=== PATIENT | female | born 1975 | race Caucasian/White ===

== ENCOUNTER 2022-10-20 08:44 | Outpatient (AMB) | payer OTHER, SELFPAY ==
--- NOTE | 2022-10-20 08:47 | A.OFFPC_ITS ---
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 Transferring care from Dr Sylvie Katz ([facility]), . Medical records have been requested and have not received. Side Sawyer Required: No Deck Officer: Not Required per policy Accompanied by: Self / Same As Patient Allergies cyclobenzaprine [From Flexeril] Allergy (Intermediate, Verified 10/20/22 09:25) Hives diphenhydramine [From Benadryl] Allergy (Intermediate, Verified 10/20/22 09:25) Palpitations Medication List - Last Reconciled 10/20/22 by MIRACLE Guido atorvastatin 40 mg PO DAILY bupropion HCl 200 mg PO DAILY clopidogrel 75 mg PO DAILY diltiazem HCl 240 mg PO DAILY escitalopram oxalate 5 mg PO DAILY fluticasone furoate-vilanterol 200-25 mcg/dose (Breo Ellipta) 1 inh inhalation DAILY folic acid 1 mg PO DAILY gabapentin 300 mg PO BEDTIME gabapentin 100 mg PO BEDTIME infliximab (Remicade) every six weeks levocetirizine (Xyzal) 5 mg PO DAILY levothyroxine 50 mcg PO DAILY methotrexate sodium 10 mg PO QWEEK propranolol ER 60 mg PO DAILY rivaroxaban (Xarelto) 20 mg PO DAILY Tobacco use date assessed: 10/20/22 Dental Screening Dental Screen Date: 10/20/22 Did you have a dental visit in the last 12 months?: Yes Did you have a dental problem in the last 6 months where you did not have access to dental care?: No Was dental information given to patient?: Patient has dentist HPI HPI Comments History of Present Illness Details A 47-year-old female new patient presents today to establish care. Past medical history significant for hypothyroidism, asthma, anxiety, depression, obstructive sleep apnea uses a CPAP with good effect, osteoarthritis, Sarcodosis, RLS and spontaneous dissection of coronary artery, VA's x2. Paroxysmal AFib. Patient currently following with therapist Christie Calles and psychiatrist: Luciano Moreno. Spontaneous dissection of coronary artery: Patient currently following with the [facility] Rickie Waller Sarcodosis: Patient currently on Remicade and methotrexate. Previous pcp: Dr Sylvie Katz ([facility]), [facility] Medical History (Updated 10/20/22 @ 13:09 by MIRACLE Guido) Myocardial infarction History of pacemaker Surgical History (Updated 10/20/22 @ 09:11 by Wilbert Mello [facility]) History of prior ablation treatment Family History (Updated 10/20/22 @ 09:30 by MIRACLE Guido) Mother No problems noted. Father COPD (chronic obstructive pulmonary disease) Other Mental health disorder Substance use disorder Social History Housing: Condominium Alcohol intake: never Patient Tobacco Use Status: Never used Tobacco e-Cigarette/Vaping Use: Never Used Second Hand Smoke Exposure: No service: No Current occupational status: unemployed and disabled Current occupational exposures/hazards: No Cognitive needs: No Hearing needs: No Vision needs: Yes (glasses) Questionnaire PHQ-9 Over the last 2 weeks, how often have you been bothered by any of the following problems? 1. Little interest or pleasure in doing things: several days 2. Feeling down, depressed, or hopeless: several days 3. Trouble falling or staying asleep, or sleeping too much: more than half the days 4. Feeling tired or having little energy: more than half the days 5. Poor appetite or overeating: more than half the days 6. Feeling bad about yourself - or that you are a failure or have let yourself or your family down: several days 7. Trouble concentrating on things, such as reading the newspaper or watching television: several days 8. Moving or speaking so slowly that other people could have noticed. Or the opposite - being so fidgety or restless that you have been moving around a lot more than usual: not at all 9. Thoughts that you would be better off or of hurting yourself in some way: not at all Total score: 10 Depression Screening Interpretation: Positive [id number] - PHQ-9 Billing: Yes Source: Developed by Drs. Mat Mcwilliams, Livier Boykin, Yuri Anguiano and colleagues, with an educational estella from [employer]. Thrive Questionnaire Date Thrive assessed: 10/20/22 I am a: Patient What is your living situation today?: I have a steady place to live Within the past 12 months, did the food you bought not last and you didn't have the money to get more?: Never true Within the past 12 months, did you worry whether your food would run out before you got money to buy more?: Never true Do you have trouble paying for medicines?: No Do you have trouble getting transportation to medical appointments?: No Do you have trouble paying your heating and electricity bill?: No Do you have trouble taking care of your child, family member or friend?: No Do you have trouble with day-to-day activities such as bathing, preparing meals, shopping, managing finances, etc.?: No Are you currently unemployed and looking for a job?: No Are you interested in more education?: No Currently or been in a relationship where the following occur: no concerns reported AUDIT C Alcohol Use Questionnaire (AUDIT-C) 1. How often do you have a drink containing alcohol?: Never Total Score: 0 BRIAN-7 AMB Questionnaire BRIAN-7 Date BRIAN - 7 assessed: 10/20/22 Feeling nervous, anxious, or on edge: 1 = Several days Not being able to stop or control worryin = Several days Worrying too much about different things: 1 = Several days Trouble relaxin = Several days Being so restless that it is hard to sit still: 1 = Several days Becoming easily annoyed or irritable: 0 = Not at all Feeling afraid as if something awful might happen: 0 = Not at all Total BRIAN-7 score (0-4 normal; 5-9 mild; 10-14 moderate; 15-21 severe): 5 Source: Developed by Drs. Mat Mcwilliams, Yuri Spencer and colleagues, with an educational estella from [employer]. Review of Systems Const Denies chills, Denies fatigue, Denies fever(s) and Denies poor appetite Eyes Denies no additional complaints ENT Reports Normal hearing present Card Denies chest pain, Denies syncope, Denies rapid heart rate and Denies dyspnea Resp Denies cough and Denies dyspnea GI Denies change in stool character, Denies constipation, Denies diarrhea, Denies nausea and Denies vomiting Denies urinary frequency, Denies dysuria and Denies urinary urgency Neuro Reports Normal hearing present, Denies confusion and Denies syncope Psych Denies confusion Endo Denies fatigue Physical exam (Primary Care) Vital Signs: Last Vital Signs Pulse 71 10/20/22 08:53 BP 120/70 10/20/22 08:53 Pulse Ox 96 10/20/22 08:53 Oxygen Delivery Method Room Air 10/20/22 08:53 BMI result Body Mass Index 51.8 Tobacco/Smoking Status: Tobacco use Status Tobacco use date assessed 10/20/22 10/20/22 08:55 Patient Tobacco Use Status Never used Tobacco 10/20/22 08:55 e-Cigarette/Vaping Use Never Used 10/20/22 08:55 PHQ-9: PHQ-9 Score PHQ-9: Total score 10 10/20/22 09:37 Depression Screening Interpretation: Positive Thrive Assessment: Date of Thrive Assessment Date Thrive assessed 10/20/22 10/20/22 08:55 Currently or been in a relationship where the following occur: no concerns reported Const General: No confusion Orientation/consciousness: No confusion HENMT Head: Yes normocephalic and Yes atraumatic Eyes Conjunctivae: conjunctivae normal Chest Chest palpation & inspection: normal inspection of the chest Resp Effort & Inspection: normal respiratory effort Auscultation: clear to auscultation bilaterally, no crackles, no rhonchi and no wheezes Cardio Rate: regular rate Rhythm: regular rhythm Heart sounds: S1 normal heart sound present and S2 normal heart sound present GI Inspection: Yes normal to inspection Neuro General: No confusion Cranial nerves: Yes Normal hearing present Extrem General: No edema Assessment and Plan Assessment & Plan (1) Hypothyroidism: Code(s): E03.9 - Hypothyroidism, unspecified Plan: Continue on levothyroxine. (2) Depression: Code(s): F32.A - Depression, unspecified Qualifiers: Depression Type: major depressive disorder Plan: Continue on bupropion 200 mg daily. Continue to follow-up with therapist psychiatrist. (3) Impaired glucose tolerance: Code(s): R73.02 - Impaired glucose tolerance (oral) Plan: Fasting glucose ordered and hemoglobin A1c. (4) Vitamin D deficiency: Code(s): E55.9 - Vitamin D deficiency, unspecified Plan: Vitamin-D level ordered. (5) Environmental allergies: Code(s): Z91.09 - Other allergy status, other than to drugs and biological substances Plan: Patient requesting prescription for size, Rx sent. 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 (6) Restless leg syndrome: Code(s): G25.81 - Restless legs syndrome Plan: Continue on gabapentin (7) MAXIMUS (obstructive sleep apnea): Comment: CPAP Code(s): G47.33 - Obstructive sleep apnea (adult) (pediatric) Plan: Continue CPAP for greater than 4 hours a night with good effect. (8) Anxiety: Code(s): F41.9 - Anxiety disorder, unspecified Plan: Continue on escitalopram 5 mg daily. Continue to follow with therapist and psychiatrist. (9) Spontaneous dissection of coronary artery: Code(s): I25.42 - Coronary artery dissection Plan: Continue to follow-up with network analyst continue on atorvastatin 40 mg daily and Xarelto and clopigogrel (10) Sarcoidosis: Code(s): D86.9 - Sarcoidosis, unspecified Plan: Continue on methotrexate and Remicade. (11) Paroxysmal A-fib: Code(s): I48.0 - Paroxysmal atrial fibrillation Plan: Continue on current anticoagulation therapy continue on diltiazem 240 mg daily propranolol 60 mg daily. Plan Follow-up in 3 months. Orders: Orders Comprehensive Umpire. Panel Fast Today Z13.0 - Encounter for screening for diseases of the blood and blood-forming organs and certain disorders involving the immune mechanism Lipid Panel Today Z13.220 - Encounter for screening for lipoid disorders TSH reflex Free T4 Today Z13.29 - Encounter for screening for other suspected endocrine disorder Complete Blood Count no Diff Today Z13.0 - Encounter for screening for diseases of the blood and blood-forming organs and certain disorders involving the immune mechanism Hemoglobin A1c Today R73.02 - Impaired glucose tolerance (oral) Vitamin D 25-OH Total Today E55.9 - Vitamin D deficiency, unspecified Medications: New levothyroxine 50 mcg PO DAILY 90 tabs 1RF E03.9 - Hypothyroidism, unspecified levocetirizine (Xyzal) 5 mg PO DAILY 90 tabs 1RF Z91.09 - Other allergy status, other than to drugs and biological substances Coding Level of Care Code New Pt Level 4 (38179) Diagnoses Hypothyroidism E03.9 Depression F32.A Depression Type: major depressive disorder Impaired glucose tolerance R73.02 Vitamin D deficiency E55.9 Environmental allergies Z91.09 Restless leg syndrome G25.81 MAXIMUS (obstructive sleep apnea) G47.33 Anxiety F41.9 Spontaneous dissection of coronary artery I25.42 Sarcoidosis D86.9 Paroxysmal A-fib I48.0
[2022-10-20 08:53] VITALS: BP 120/70; PULSE 71; O2SAT 96; BMI 51.8
== END 2022-10-20 09:55 | disposition home or self-care (01) ==
PROVIDERS: PCP Nurse Practitioner Family; Visit Provider Nurse Practitioner Family
DX: E03.9 Hypothyroidism, unspecified (principal); E55.9 Vitamin D deficiency, unspecified; Z91.09 Other allergy status, other than to drugs and biological substances; F41.9 Anxiety disorder, unspecified; I48.0 Paroxysmal atrial fibrillation; F32.A Depression, unspecified; R73.02 Impaired glucose tolerance (oral); G25.81 Restless legs syndrome; G47.33 Obstructive sleep apnea (adult) (pediatric); I25.42 Coronary artery dissection; D86.9 Sarcoidosis, unspecified
CPT/HCPCS: 99204

== ENCOUNTER 2022-10-20 09:49 | Outpatient (REF) | payer OTHER, SELFPAY ==
[2022-10-20 10:30] LABS: Hematocrit 35.4 % (37.0-47.0); Hemoglobin 11.1 g/dl (12.0-16.0); Mean Corpuscular HGB Conc 31.4 g/dl (31.0-35.0); Mean Corpuscular Hemoglobin 27.6 pg (27.0-33.0); Mean Corpuscular Volume 88.1 fL (80.0-98.0); Mean Platelet Volume 10.5 fL (9.4-12.3); Platelet Count 285 X10*3/uL (160-400); Red Blood Count 4.02 X10*6/uL (4.20-5.50); Red Cell Distribution Width 16.5 % (11.0-16.0); White Blood Count 6.9 X10*3/uL (4.8-10.8)
[2022-10-20 10:38] LABS: Estimated Average Glucose 114 mg/dL; Hemoglobin A1C 112.2974 umol/L; Hemoglobin A1c % 5.6 % (<6.0)
[2022-10-20 11:17] LABS: Alanine Aminotransferase 32 U/L (0-31); Albumin Level 3.7 g/dL (3.5-5.0); Alkaline Phosphatase 89 U/L (39-117); Anion Gap 10 (12-20); Aspartate Amino Transferase 30 U/L (5-31); Bilirubin Total 0.4 mg/dL (0.0-1.0); Blood Urea Nitrogen 17 mg/dL (9-16); Calcium 9.1 mg/dL (8.4-10.2); Carbon Dioxide 28 mmol/L (22-29); Chloride 106 mmol/L (96-108); Cholesterol 138 mg/dL (<200); Estimated Glomerular Filt Rate 60; Glucose Fasting 106 mg/dL (60-99); HDL Cholesterol 52 mg/dL (>40); LDL Cholesterol Calculated 64 mg/dL (<100); Potassium 4.4 mmol/L (3.3-5.1); Sodium 140 mmol/L (135-145); Total Protein 6.7 g/dL (6.5-8.0); Triglycerides 110 mg/dL (<150)
[2022-10-20 11:24] LABS: TSH reflex Free T4 1.74 uIU/mL (0.32-4.0)
== END 2022-10-20 09:50 | disposition home or self-care (01) ==
LOC: HO.LAB 09:49
PROVIDERS: PCP Nurse Practitioner Family; Visit Provider Nurse Practitioner Family
DX: E55.9 Vitamin D deficiency, unspecified (principal); R73.02 Impaired glucose tolerance (oral); Z13.0 Encounter for screening for diseases of the blood and blood-forming organs and certain disorders involving the immune mechanism; Z13.220 Encounter for screening for lipoid disorders; Z13.29 Encounter for screening for other suspected endocrine disorder
CPT/HCPCS: 36415; 80053; 80061; 82306; 83036; 84443; 85027

== ENCOUNTER 2022-10-31 14:30 | Outpatient (REF) | payer OTHER, SELFPAY | END 2022-10-31 14:31 | disposition home or self-care (01) | LOC: HO.MAMMO 14:30 | PROVIDERS: Visit Provider Nurse Practitioner Family | DX: Z12.31 Encounter for screening mammogram for malignant neoplasm of breast (principal) | CPT/HCPCS: 77063; 77067 ==

== ENCOUNTER → 2022-10-31 14:30 | Outpatient (BNV) | payer OTHER, SELFPAY | PROVIDERS: Visit Provider Radiology Diagnostic Radiology | DX: Z12.31 Encounter for screening mammogram for malignant neoplasm of breast (principal) | CPT/HCPCS: 77063; 77067 ==

== ENCOUNTER 2022-12-18 13:03 | Outpatient (REF) | payer OTHER, SELFPAY ==
[2022-12-18 14:19] LABS: Appearance Urine Clear; Color Urine Yellow; Glucose Urine UA Negative (Negative); Leukocyte Esterase Urine Large (3+) (Negative); Nitrite Urine Negative (Negative); PH 6.5 (5.0-9.0); Specific Gravity - Urine <= 1.005 (1.005-1.025); UMIC TRIGGER UACC YES; Urine Blood Moderate (2+) (Negative); Urine Ketones Negative (Negative); Urine Protein Trace mg/dL (Neg-Trace)
[2022-12-18 14:29] LABS: Bacteria Urine 1+ (None Seen); Hyaline Casts Urine 0-2 /LPF (0-2); UACC Culture Trigger YES; WBC Urine >50 /HPF (0-5)
== END 2022-12-18 13:04 | disposition home or self-care (01) ==
LOC: HO.LAB 13:03
PROVIDERS: PCP Nurse Practitioner Family; Visit Provider Nurse Practitioner Family
DX: R39.9 Unspecified symptoms and signs involving the genitourinary system (principal)
CPT/HCPCS: 81001; 87086

== ENCOUNTER 2023-06-04 10:05 | Outpatient (AMB) | payer OTHER, SELFPAY ==
[2023-06-04 10:09] VITALS: BP 128/62; PULSE 70; O2SAT 98; BMI 51.4
--- NOTE | 2023-06-04 10:09 | MHC.PC.OV ---
Vital Signs 06/04/23 10:09 Height 5 ft 3.5 in Weight 295 lb BMI 51.4 BP 128/62 Blood Pressure Location Lt brachial Position Sitting Pulse 70 Pulse Source Pulse Oximeter Pulse Oximetry (%) 98 Oxygen Delivery Method Room Air Intake Visit Reasons: kathleen (fe) Piercer Required: No Allergies cyclobenzaprine [From Flexeril] Allergy (Intermediate, Verified 06/04/23 11:00) Hives diphenhydramine [From Benadryl] Allergy (Intermediate, Verified 06/04/23 11:00) Palpitations Medication List - Last Reconciled 06/04/23 by Keegan Sloan MD bupropion HCl SR 300 mg PO DAILY diltiazem HCl CD 240 mg PO DAILY escitalopram oxalate 5 mg PO DAILY ferrous sulfate 200 mg PO DAILY fluticasone furoate-vilanterol 200-25 mcg/dose (Breo Ellipta) 1 inh inhalation DAILY folic acid 1 mg PO DAILY gabapentin 600 mg PO BEDTIME infliximab (Remicade) 100 mg IV Q6W levocetirizine (Xyzal) 5 mg PO DAILY PRN 90 days levothyroxine 50 mcg PO DAILY methotrexate sodium 10 mg PO QWEEK propranolol ER 60 mg PO DAILY rivaroxaban (Xarelto) 20 mg PO DAILY semaglutide (weight loss) 0.5 mg subcut QWEEK Tobacco use date assessed: 06/04/23 Dental Screening Dental Screen Date: 06/04/23 Did you have a dental visit in the last 12 months?: No Did you have a dental problem in the last 6 months where you did not have access to dental care?: No Was dental information given to patient?: Patient has dentist HPI pe (fe) HPI Details Patient comes in today for her annual physical examination - used to see Radha Barrow, who is no longer with the practice Patient has a history of cardiac sarcoidosis and [place] x 2 and continues to follow up with cardiology at the [facility] in [place], [place] regularly for these issues States that she was at the ER at [facility] a couple of weeks ago for tachycardia and had her pacemaker adjusted States that she currently feels okay She denies any headaches or dizziness Denies any chest pains, no SOB No nausea/vomiting, no abdominal pain No change in bowel habits noted Needs a couple of her Rx refilled She denies any acute urinary symptoms Had her annual mammogram last done in 10/2022 She sees her OB-Buckle Strap Puncher at the [facility] and states that she is up-to-date with her annual gynecology exam and pap smear SHe has never had a screening colonoscopy done in the past [facility] Medical History (Updated 06/08/23 @ 05:05 by Keegan Sloan MD) Morbid obesity with BMI of 50.0-59.9, adult Allergic rhinitis Impaired fasting glucose Acquired hypothyroidism Hx of coronary angiogram Cardiac resynchronization therapy defibrillator (CLINIC CHARGE NURSE-D) in place Non-ST elevation (NSTEMI) myocardial infarction Spontaneous dissection of coronary artery Atrial flutter Cardiac sarcoidosis Myocardial infarction Surgical History (Updated 06/08/23 @ 04:33 by Keegan Sloan MD) Hx of cardiac catheterization History of cardiac radiofrequency ablation Family History Mother No problems noted. Father COPD (chronic obstructive pulmonary disease) Other Mental health disorder Substance use disorder Social History Housing: Condominium Alcohol intake: never Patient Tobacco Use Status: Never used Tobacco e-Cigarette/Vaping Use: Never Used Second Hand Smoke Exposure: No service: No Current occupational status: unemployed and disabled Current occupational exposures/hazards: No Cognitive needs: No Hearing needs: No Vision needs: Yes (glasses) Questionnaire PHQ-9 Over the last 2 weeks, how often have you been bothered by any of the following problems? 1. Little interest or pleasure in doing things: several days 2. Feeling down, depressed, or hopeless: several days 3. Trouble falling or staying asleep, or sleeping too much: more than half the days 4. Feeling tired or having little energy: more than half the days 5. Poor appetite or overeating: more than half the days 6. Feeling bad about yourself - or that you are a failure or have let yourself or your family down: several days 7. Trouble concentrating on things, such as reading the newspaper or watching television: several days 8. Moving or speaking so slowly that other people could have noticed. Or the opposite - being so fidgety or restless that you have been moving around a lot more than usual: not at all 9. Thoughts that you would be better off or of hurting yourself in some way: not at all Total score: 10 Depression Screening Interpretation: Positive Depression Screening Follow-up: Existing condition and In treatment Depression Screening Done: Yes 24466 - PHQ-9 Billing: Yes Source: Developed by Drs. Mat Mcwilliams, Livier Boykin, Yuri Anguiano and colleagues, with an educational estella from [employer]. Thrive Questionnaire Date Thrive assessed: 06/04/23 I am a: Patient What is your living situation today?: I have a steady place to live Within the past 12 months, did the food you bought not last and you didn't have the money to get more?: Never true Within the past 12 months, did you worry whether your food would run out before you got money to buy more?: Never true Do you have trouble paying for medicines?: No Do you have trouble getting transportation to medical appointments?: No Do you have trouble paying your heating and electricity bill?: No Do you have trouble taking care of your child, family member or friend?: No Do you have trouble with day-to-day activities such as bathing, preparing meals, shopping, managing finances, etc.?: No Are you currently unemployed and looking for a job?: No Are you interested in more education?: No Please select the resources that you would like help with: None Currently or been in a relationship where the following occur: no concerns reported THRIVE Score: 0 AUDIT C Alcohol Use Questionnaire (AUDIT-C) 1. How often do you have a drink containing alcohol?: Never 3. How often do you have six or more drinks on one occasion?: Never Total Score: 0 Score Reviewed/Action Taken: Yes BRIAN-7 AMB Questionnaire BRIAN-7 Date BRIAN - 7 assessed: 06/04/23 Feeling nervous, anxious, or on edge: 0 = Not at all Not being able to stop or control worryin = Not at all Worrying too much about different things: 0 = Not at all Trouble relaxin = Not at all Being so restless that it is hard to sit still: 0 = Not at all Becoming easily annoyed or irritable: 0 = Not at all Feeling afraid as if something awful might happen: 0 = Not at all Total BRIAN-7 score (0-4 normal; 5-9 mild; 10-14 moderate; 15-21 severe): 0 Source: Developed by Drs. Mat Mcwilliams, Livier Boykin, Yuri Anguiano and colleagues, with an educational estella from [employer]. BRIAN-7 Assessment Billing BRIAN-7 Assessment Tool: BRIAN-7 Assessment 97064 Review of Systems Const Denies chills, Denies fatigue, Denies fever(s), Denies headache(s) and Denies malaise Eyes Denies blurry vision, Denies change in vision, Denies irritation and Denies itchy eyes ENT Denies dysphagia, Denies dizziness, Denies otalgia, Denies headache(s), Denies nasal congestion, Denies neck pain, Denies odynophagia, Denies sinus pain and Denies sore throat Card Denies chest pain, Denies rapid heart rate, Denies irregular heart rhythm, Denies palpitations and Denies dyspnea Resp Denies chest congestion, Denies cough, Denies dyspnea and Denies wheezing GI Denies abdominal pain, Denies bloating, Denies constipation, Denies dysphagia, Denies heartburn, Denies diarrhea, Denies nausea, Denies odynophagia and Denies vomiting Denies hematuria, Denies urinary frequency, Denies dysuria, Denies urinary incontinence and Denies urinary urgency Musc Denies back pain, Denies arthralgias, Denies joint swelling, Denies muscle weakness and Denies neck pain Skin/Breast Denies breast pain, Denies breast mass, Denies change in pigmentation, Denies lesions, Denies rash and Denies unusual bruising Neuro Denies dizziness, Denies headache(s) and Denies paresthesias Psych Denies anxiety and Denies depression Endo Denies fatigue and Denies palpitations Cordell/Lymph Denies easy bruising Aller/Immun Denies itchy eyes and Denies wheezing Physical exam (Primary Care) Vital Signs: Last Vital Signs Pulse 70 06/04/23 10:09 BP 128/62 06/04/23 10:09 Pulse Ox 98 06/04/23 10:09 Oxygen Delivery Method Room Air 06/04/23 10:09 BMI result Body Mass Index 51.4 Tobacco/Smoking Status: Tobacco use Status Tobacco use date assessed 06/04/23 06/04/23 10:10 Patient Tobacco Use Status Never used Tobacco 06/04/23 10:10 e-Cigarette/Vaping Use Never Used 06/04/23 10:10 Depression Screening Interpretation: Positive Depression Screening Follow-up: Existing condition and In treatment Thrive Assessment: Date of Thrive Assessment Date Thrive assessed 06/04/23 06/04/23 10:10 Currently or been in a relationship where the following occur: no concerns reported Const General: no acute distress, alert and awake Orientation/consciousness: patient oriented x3 HENMT Head: Yes normocephalic and Yes atraumatic Ears: external ears normal, TM's normal bilaterally and EAC's normal General nose exam: No nasal discharge present Face and sinus: Yes normal facial exam and Yes sinuses nontender Teeth and gingiva: dentition normal Throat: Yes posterior oropharynx normal and Yes tonsils normal (no TP congestion) Eyes Eyelids: Yes eyelids normal Conjunctivae: conjunctivae normal Pupils: Equal, round and reactive pupils present EOM: EOMs intact bilaterally Neck Neck: Yes no lymphadenopathy and Yes supple Thyroid: Thyroid normal Resp Auscultation: clear to auscultation bilaterally, no rales and no wheezes Cardio Rate: regular rate Rhythm: regular rhythm Heart sounds: no murmurs GI Palpation (GI): Soft to palpation, nontender and No hepatosplenomegaly present Auscultation: normal bowel sounds General: Yes no CVA tenderness Back/Spine/Pelvis Back: no CVA tenderness Thoracic/Lumbar Spine: thoracic and lumbar spine normal to inspection Skin Lesions: no lesions Rashes: no rashes Neuro General: patient oriented x3, moves all extremities, no focal motor deficits and CN's II-XI intact bilaterally Cranial nerves: Yes Equal, round and reactive pupils present Cognition (Neuro): normal cognition Gait exam (Neuro): Normal gait present Extrem General: Yes no clubbing, cyanosis or edema Assessment and Plan Assessment & Plan (1) Annual physical exam: Code(s): Z00.00 - Encounter for general adult medical examination without abnormal findings Plan: Check labs She had her annual mammogram done back in 10/2022 and will be due for repeat mammogram later this fall She sees her OB-Buckle Strap Puncher at the [facility] regularly and states that she is up-to-date with her annual gynecology exam and pap smear SHe has never had a screening colonoscopy done in the past (2) Atrial flutter: Comment: S/P ablation on 06/25/22 Code(s): I48.92 - Unspecified atrial flutter Qualifiers: Atrial flutter type: unspecified Qualified Code(s): I48.92 - Unspecified atrial flutter Plan: S/P cardiac ablation in 06/2022 She recently had her pacemaker adjusted at [facility] a couple of weeks ago (05/2023) when she presented there with tachycardia Continue Diltiazem CD 240 mg QD Follow up with cardiology as scheduled - goes to cardiology at the [facility] in [place], [place] (3) Cardiac sarcoidosis: Comment: S/P CLINIC CHARGE NURSE-D ([employer]) in 2021 Code(s): 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 Plan: S/P CLINIC CHARGE NURSE-D in 2021 Continue Methotrexate 10 mg once a week and Remicade 100 mg IV Q 6 weeks (4) Spontaneous dissection of coronary artery: Comment: SCAD - 07/04/2022 Code(s): I25.42 - Coronary artery dissection Plan: S/P NSTEMI and SCAD on 07/04/2022 (diagnosed by coronary angiogram) Continue aggressive risk factor modification Continue Propranolol ER 60 mg QD and Xarelto 20 mg QD She also used to take Atorvastatin 40 mg QD but is currently no longer on the Rx - states that she was advised that she no longer needs to continue on the medication Will recheck her fasting lipids PEDRO for follow up on this (5) Asthma: Code(s): J45.909 - Unspecified asthma, uncomplicated Qualifiers: Asthma severity: moderate Asthma persistence: persistent Asthma complication type: uncomplicated Qualified Code(s): J45.40 - Moderate persistent asthma, uncomplicated Plan: Appears controlled Continue Breo Ellipta 200-25 mcg 1 inhalation QD and Albuterol HFA 2 inhalations Q 6 hours PRN Follow up with Pulmonary as scheduled (6) MAXIMUS (obstructive sleep apnea): Comment: CPAP Code(s): G47.33 - Obstructive sleep apnea (adult) (pediatric) Plan: Continue using her CPAP device when sleeping at night regularly She is currently still on autoCPAP at 15 to 20 cm H2O and has been using a CPAP device for over 6 years now Follow up with Sleep Medicine as scheduled (7) Acquired hypothyroidism: Code(s): E03.9 - Hypothyroidism, unspecified Plan: Continue Levothyroxine 50 mcg QD - Rx refilled Will recheck her TFTs for follow up (8) Impaired fasting glucose: Code(s): R73.01 - Impaired fasting glucose Plan: Reinforced low calorie/low carb diet, exercise as tolerated Will recheck her FBS as well as her HgbA1c for follow up (9) Restless leg syndrome: Code(s): G25.81 - Restless legs syndrome Plan: Continue Gabapentin 600 mg Q HS (10) Allergic rhinitis: Code(s): J30.9 - Allergic rhinitis, unspecified Qualifiers: Allergic rhinitis trigger: unspecified Allergic rhinitis seasonality: non-seasonal Qualified Code(s): J30.89 - Other allergic rhinitis Plan: Continue Levocetirizine 5 mg QD PRN (Rx refilled, per request) (11) Anxiety: Code(s): F41.9 - Anxiety disorder, unspecified Plan: Continue Bupropion SR 300 mg QD and Escitalopram 5 mg QD (12) Depression: Code(s): F32.A - Depression, unspecified Qualifiers: Depression Type: major depressive disorder Major depression recurrence: recurrent Active/Remission status: currently active Major depression episode severity: unspecified Qualified Code(s): F33.9 - Major depressive disorder, recurrent, unspecified Plan: Continue Bupropion SR 300 mg QD and Escitalopram 5 mg QD Follow up with psychiatry as scheduled (13) Morbid obesity with BMI of 50.0-59.9, adult: Code(s): E66.01 - Morbid (severe) obesity due to excess calories; Z68.43 - Body mass index [BMI] 50.0-59.9, adult Plan: Reinforced diet/exercise as tolerated/lose weight although she admits that her activity level is limited due to her multiple comorbidities but she does try to do at least some walking regularly She is currently on Semaglutide 0.5 mg SQ once a week to help her lose weight (14) Colon cancer screening: Code(s): Z12.11 - Encounter for screening for malignant neoplasm of colon Plan: Will refer her for screening colonoscopy - she has never had a colonoscopy done in the past Plan Follow up in 4 months Orders: Orders Free T4 (Free Thyroxine) 06/04/23 E03.9 - Hypothyroidism, unspecified, Z00.00 - Encounter for general adult medical examination without abnormal findings UA CC w/rflx Micro + Cult 06/04/23 R30.0 - Dysuria, Z00.00 - Encounter for general adult medical examination without abnormal findings Vitamin B12 and Folate 06/04/23 E53.8 - Deficiency of other specified B group vitamins, Z00.00 - Encounter for general adult medical examination without abnormal findings Vitamin D 25-OH Total 06/04/23 E55.9 - Vitamin D deficiency, unspecified, Z00.00 - Encounter for general adult medical examination without abnormal findings Complete Blood Count Auto Diff 06/04/23 D64.9 - Anemia, unspecified, Z00.00 - Encounter for general adult medical examination without abnormal findings Comprehensive [place]. Panel Fast 06/04/23 E78.00 - Pure hypercholesterolemia, unspecified, Z00.00 - Encounter for general adult medical examination without abnormal findings Lipid Panel 06/04/23 E78.00 - Pure hypercholesterolemia, unspecified, Z00.00 - Encounter for general adult medical examination without abnormal findings Thyroid Stimulating Hormone 06/04/23 E03.9 - Hypothyroidism, unspecified, Z00.00 - Encounter for general adult medical examination without abnormal findings Magnesium 06/04/23 E83.42 - Hypomagnesemia, Z00.00 - Encounter for general adult medical examination without abnormal findings Hemoglobin A1c 06/04/23 R73.01 - Impaired fasting glucose Referrals Gastroenterology Referral Z12.11 - Encounter for screening for malignant neoplasm of colon Medications: Changed From levocetirizine (Xyzal) 5 mg PO DAILY 90 tabs 1RF Z91.09 - Other allergy status, other than to drugs and biological substances To levocetirizine (Xyzal) 5 mg PO DAILY 90 days PRN 90 tabs 3RF allergy symptoms Z91.09 - Other allergy status, other than to drugs and biological substances Refilled levothyroxine 50 mcg PO DAILY 90 tabs 1RF E03.9 - Hypothyroidism, unspecified Coding Level of Care Code Est Pt Prev Care 40-64y(84129) Diagnoses Annual physical exam Z00.00 Atrial flutter, unspecified type I48.92 Atrial flutter type: unspecified Cardiac sarcoidosis D86.85 Spontaneous dissection of coronary artery I25.42 Moderate persistent asthma without complication J45.40 Asthma severity: moderate Asthma persistence: persistent Asthma complication type: uncomplicated MAXIMUS (obstructive sleep apnea) G47.33 Acquired hypothyroidism E03.9 Impaired fasting glucose R73.01 Restless leg syndrome G25.81 Non-seasonal allergic rhinitis, unspecified trigger J30.89 Allergic rhinitis trigger: unspecified Allergic rhinitis seasonality: non-seasonal Anxiety F41.9 Episode of recurrent major depressive disorder, unspecified depression episode severity F33.9 Depression Type: major depressive disorder Major depression recurrence: recurrent Active/Remission status: currently active Major depression episode severity: unspecified Morbid obesity with BMI of 50.0-59.9, adult E66.01; Z68.43 Colon cancer screening Z12.11 Additional Codes BRIAN-7 Assessment Billing - BRIAN-7 Assessment Tool: BRIAN-7 Assessment 13484 ([id number])
== END 2023-06-04 13:34 | disposition home or self-care (01) ==
PROVIDERS: PCP Nurse Practitioner Family; Visit Provider Internal Medicine
DX: Z00.00 Encounter for general adult medical examination without abnormal findings (principal); I48.92 Unspecified atrial flutter; E66.01 Morbid (severe) obesity due to excess calories; Z68.43 Body mass index [BMI] 50.0-59.9, adult; F33.9 Major depressive disorder, recurrent, unspecified; D86.85 Sarcoid myocarditis; I25.42 Coronary artery dissection; J45.40 Moderate persistent asthma, uncomplicated; G47.33 Obstructive sleep apnea (adult) (pediatric); E03.9 Hypothyroidism, unspecified; R73.01 Impaired fasting glucose; G25.81 Restless legs syndrome
CPT/HCPCS: 99396

== ENCOUNTER 2023-06-10 11:34 | Outpatient (REF) | payer OTHER, SELFPAY ==
[2023-06-10 12:48] LABS: Alanine Aminotransferase 15 U/L (0-31); Albumin Level 3.8 g/dL (3.5-5.0); Alkaline Phosphatase 71 U/L (39-117); Anion Gap 11 (12-20); Aspartate Amino Transferase 18 U/L (5-31); Bilirubin Total 0.4 mg/dL (0.0-1.0); Blood Urea Nitrogen 15 mg/dL (9-16); Calcium 8.9 mg/dL (8.4-10.2); Carbon Dioxide 27 mmol/L (22-29); Chloride 104 mmol/L (96-108); Cholesterol 187 mg/dL (<200); Estimated Glomerular Filt Rate 56; Glucose Fasting 96 mg/dL (60-99); HDL Cholesterol 47 mg/dL (>40); LDL Cholesterol Calculated 122 mg/dL (<100); Potassium 4.4 mmol/L (3.3-5.1); Sodium 138 mmol/L (135-145); Triglycerides 94 mg/dL (<150)
[2023-06-10 13:04] LABS: Free T4 (Free Thyroxine) 0.92 ng/dL (0.71-1.85); Thyroid Stimulating Hormone 1.52 uIU/mL (0.32-4.0); Vitamin D 25-OH Total 21.1 ng/mL (>30)
[2023-06-10 13:17] LABS: Folate > 20.0 ng/mL (> or = 4.0); Vitamin B12 293 pg/mL (200-900)
[2023-06-10 13:51] LABS: Appearance Urine Clear; Color Urine Yellow; Glucose Urine UA Negative (Negative); Leukocyte Esterase Urine Small (1+) (Negative); Nitrite Urine Negative (Negative); Specific Gravity - Urine 1.025 (1.005-1.025); UMIC TRIGGER UACC YES; Urine Blood Trace (Negative); Urine Ketones Negative (Negative); Urine Protein 30 (1+) mg/dL (Neg-Trace)
[2023-06-10 13:54] LABS: Bacteria Urine None Seen (None Seen); Hyaline Casts Urine 0-2 /LPF (0-2); UACC Culture Trigger YES
== END 2023-06-10 11:35 | disposition home or self-care (01) ==
LOC: HO.LAB 11:34
PROVIDERS: PCP Internal Medicine; Visit Provider Internal Medicine
DX: Z00.00 Encounter for general adult medical examination without abnormal findings (principal); E55.9 Vitamin D deficiency, unspecified; E78.00 Pure hypercholesterolemia, unspecified; E03.9 Hypothyroidism, unspecified; R73.01 Impaired fasting glucose; E53.8 Deficiency of other specified B group vitamins; D64.9 Anemia, unspecified; E83.42 Hypomagnesemia; R30.0 Dysuria
CPT/HCPCS: 36415; 80053; 80061; 81001; 82306; 82607; 82746; 83036; 83735; 84439; 84443; 85025; 87086; 87088; 87186

== ENCOUNTER 2023-10-09 13:38 | Outpatient (AMB) | payer OTHER, SELFPAY ==
[2023-10-09 13:44] VITALS: BP 124/82; PULSE 74; O2SAT 96; BMI 49.1
--- NOTE | 2023-10-09 13:44 | A.OFFPC_ITS ---
Vital Signs 10/09/23 13:44 Height 5 ft 3.5 in Weight 281 lb 8 oz BMI 49.1 BP 124/82 Blood Pressure Location Lt brachial Position Sitting Pulse 74 Pulse Source Pulse Oximeter Pulse Oximetry (%) 96 Oxygen Delivery Method Room Air Intake Visit Reasons: cardiac sarcoidosis, CAD, hypothyroidism Bow Machine Operator Required: No Accompanied by: Self / Same As Patient Allergies cyclobenzaprine [From Flexeril] Allergy (Intermediate, Verified 10/09/23 14:15) Hives diphenhydramine [From Benadryl] Allergy (Intermediate, Verified 10/09/23 14:15) Palpitations Medication List - Last Reconciled 10/09/23 by Keegan Sloan MD bupropion HCl SR 300 mg PO DAILY diltiazem HCl CD 240 mg PO DAILY escitalopram oxalate 5 mg PO DAILY ferrous sulfate 200 mg PO DAILY fluticasone furoate-vilanterol 200-25 mcg/dose (Breo Ellipta) 1 inh inhalation DAILY folic acid 1 mg PO DAILY gabapentin 600 mg PO BEDTIME infliximab (Remicade) 100 mg IV Q6W levocetirizine (Xyzal) 5 mg PO DAILY PRN 90 days levothyroxine 50 mcg PO DAILY methotrexate sodium 10 mg PO QWEEK propranolol ER 60 mg PO DAILY rivaroxaban (Xarelto) 20 mg PO DAILY semaglutide (weight loss) 0.5 mg subcut QWEEK Tobacco use date assessed: 10/09/23 Dental Screening Dental Screen Date: 10/09/23 Did you have a dental visit in the last 12 months?: No Did you have a dental problem in the last 6 months where you did not have access to dental care?: No Was dental information given to patient?: No HPI cardiac sarcoidosis, CAD, hypothyroidism HPI Details Patient comes in today for her follow up visit States that she currently feels okay Relates that she underwent cardiac ablation again (2nd time) at the [facility] last month and she has had no problems since She denies any headaches or dizziness Still has on and off chest pains - she was sent to the ER by cardiology back in June 2023 for recurrent chest pains and cardiac work ups done were all negative at the time She denies any increased SOB No nausea/vomiting, no abdominal pain No change in bowel habits noted She would like to know how she did on her labs done back in June 2023 [facility] Medical History Morbid obesity with BMI of 50.0-59.9, adult Allergic rhinitis Impaired fasting glucose Acquired hypothyroidism Hx of coronary angiogram Cardiac resynchronization therapy defibrillator ([employer]-D) in place Non-ST elevation (NSTEMI) myocardial infarction Spontaneous dissection of coronary artery Atrial flutter Cardiac sarcoidosis Myocardial infarction Surgical History Hx of cardiac catheterization History of cardiac radiofrequency ablation Family History Mother No problems noted. Father COPD (chronic obstructive pulmonary disease) Other Mental health disorder Substance use disorder Social History Housing: Condominium Alcohol intake: never Patient Tobacco Use Status: Never used Tobacco e-Cigarette/Vaping Use: Never Used Second Hand Smoke Exposure: No service: No Current occupational status: unemployed and disabled Current occupational exposures/hazards: No Cognitive needs: No Hearing needs: No Vision needs: Yes (glasses) Questionnaire PHQ-9 Over the last 2 weeks, how often have you been bothered by any of the following problems? 1. Little interest or pleasure in doing things: several days 2. Feeling down, depressed, or hopeless: several days 3. Trouble falling or staying asleep, or sleeping too much: more than half the days 4. Feeling tired or having little energy: more than half the days 5. Poor appetite or overeating: more than half the days 6. Feeling bad about yourself - or that you are a failure or have let yourself or your family down: several days 7. Trouble concentrating on things, such as reading the newspaper or watching television: several days 8. Moving or speaking so slowly that other people could have noticed. Or the opposite - being so fidgety or restless that you have been moving around a lot more than usual: not at all 9. Thoughts that you would be better off or of hurting yourself in some way: not at all Total score: 10 Depression Screening Interpretation: Positive Depression Screening Follow-up: Existing condition and In treatment Depression Screening Done: Yes 16729 - PHQ-9 Billing: Yes Source: Developed by Drs. Mat Mcwilliams, Yuri Spencer and colleagues, with an educational estella from [employer]. Thrive Questionnaire Date Thrive assessed: 10/09/23 I am a: Patient What is your living situation today?: I have a steady place to live Within the past 12 months, did the food you bought not last and you didn't have the money to get more?: Never true Within the past 12 months, did you worry whether your food would run out before you got money to buy more?: Never true Do you have trouble paying for medicines?: No Do you have trouble getting transportation to medical appointments?: No Do you have trouble paying your heating and electricity bill?: No Do you have trouble taking care of your child, family member or friend?: No Do you have trouble with day-to-day activities such as bathing, preparing meals, shopping, managing finances, etc.?: No Are you currently unemployed and looking for a job?: No Are you interested in more education?: No Please select the resources that you would like help with: None Currently or been in a relationship where the following occur: No concerns reported THRIVE Score: 0 AUDIT C Alcohol Use Questionnaire (AUDIT-C) 1. How often do you have a drink containing alcohol?: Never 3. How often do you have six or more drinks on one occasion?: Never Total Score: 0 Score Reviewed/Action Taken: Yes BRIAN-7 AMB Questionnaire BRIAN-7 Date BRIAN - 7 assessed: 10/09/23 Feeling nervous, anxious, or on edge: 0 = Not at all Not being able to stop or control worryin = Not at all Worrying too much about different things: 0 = Not at all Trouble relaxin = Not at all Being so restless that it is hard to sit still: 0 = Not at all Becoming easily annoyed or irritable: 0 = Not at all Feeling afraid as if something awful might happen: 0 = Not at all Total BRIAN-7 score (0-4 normal; 5-9 mild; 10-14 moderate; 15-21 severe): 0 Source: Developed by Livier Ferrer Kurt Kroenke and colleagues, with an educational estella from [employer]. BRIAN-7 Assessment Billing BRIAN-7 Assessment Tool: BRIAN-7 Assessment 21466 Review of Systems Const Denies chills, Denies fatigue, Denies fever(s) and Denies headache(s) ENT Denies dysphagia, Denies dizziness, Denies otalgia, Denies headache(s), Denies neck pain, Denies odynophagia and Denies sore throat Card Denies chest pain, Denies rapid heart rate, Denies irregular heart rhythm, Denies palpitations and Denies dyspnea Resp Denies cough, Denies dyspnea and Denies wheezing GI Denies abdominal pain, Denies constipation, Denies dysphagia, Denies heartburn, Denies diarrhea, Denies nausea, Denies odynophagia and Denies vomiting Denies urinary frequency, Denies dysuria and Denies urinary urgency Musc Denies back pain, Denies arthralgias and Denies neck pain Skin/Breast Denies rash Neuro Denies dizziness, Denies headache(s) and Denies paresthesias Psych Denies anxiety and Denies depression Endo Denies fatigue and Denies palpitations Cordell/Lymph Denies easy bruising Aller/Immun Denies wheezing Physical exam (Primary Care) Vital Signs: Last Vital Signs Pulse 74 10/09/23 13:44 BP 124/82 10/09/23 13:44 Pulse Ox 96 10/09/23 13:44 Oxygen Delivery Method Room Air 10/09/23 13:44 BMI result Body Mass Index 49.1 Tobacco/Smoking Status: Tobacco use Status Tobacco use date assessed 10/09/23 10/09/23 13:51 Patient Tobacco Use Status Never used Tobacco 10/09/23 13:51 e-Cigarette/Vaping Use Never Used 10/09/23 13:51 PHQ-9: PHQ-9 Score PHQ-9: Total score 10 10/09/23 13:51 Depression Screening Interpretation: Positive Depression Screening Follow-up: Existing condition and In treatment Thrive Assessment: Date of Thrive Assessment Date Thrive assessed 10/09/23 10/09/23 13:51 Currently or been in a relationship where the following occur: No concerns reported Const General: no acute distress and alert HENMT Ears: TM's normal bilaterally and EAC's normal Throat: Yes posterior oropharynx normal and Yes tonsils normal (no TP congestion) Neck Neck: Yes no lymphadenopathy and Yes supple Thyroid: Thyroid normal Resp Auscultation: clear to auscultation bilaterally, no rales and no wheezes Cardio Rate: regular rate Rhythm: regular rhythm Heart sounds: no murmurs GI Palpation (GI): Soft to palpation and nontender Auscultation: normal bowel sounds General: Yes no CVA tenderness Back/Spine/Pelvis Back: no CVA tenderness Skin Rashes: no rashes Extrem General: Yes no clubbing, cyanosis or edema Results Reviewed Results Reviewed: Laboratory Tests 06/10/23 06/10/23 11:51 Unknown WBC 6.7 Hgb 13.7 D Hct 40.6 Plt Count 288 Sodium 138 Potassium 4.4 Creatinine 1.05 Estimated GFR 56 Fasting Glucose 96 Hemoglobin A1c % 5.8 Calcium 8.9 Magnesium 2.0 AST 18 ALT 15 Triglycerides 94 Cholesterol 187 LDL Cholesterol, Calc 122 H HDL Cholesterol 47 Vitamin B12 293 25-OH Vitamin D Total 21.1 L TSH 1.52 Free T4 0.92 Ur Specific [place] 1.025 Urine Protein 30 (1+) H Urine Glucose (UA) Negative Urine Blood Trace H Urine Nitrite Negative Ur Leukocyte Esterase Small (1+) H Assessment and Plan Assessment & Plan (1) Atrial flutter: Comment: S/P ablation on 06/25/22 Code(s): I48.92 - Unspecified atrial flutter Qualifiers: Atrial flutter type: unspecified Qualified Code(s): I48.92 - Unspecified atrial flutter Plan: S/P cardiac ablation in 06/2022 and more recently a month ago in August 2023 at the [facility] in [place], [place] She also had her pacemaker adjusted at [facility] back in 05/2023 when she presented there with tachycardia Continue Diltiazem CD 240 mg QD Follow up with cardiology as scheduled - goes to cardiology at the [facility] in [place], [place] (2) Cardiac sarcoidosis: Comment: S/P [employer]GER-D ([employer]) in 2021 Code(s): 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 Plan: S/P [employer] MA[employer]GER-D in 2021 Continue Methotrexate 10 mg once a week and Remicade 100 mg IV Q 6 weeks (3) Spontaneous dissection of coronary artery: Comment: SCAD - 07/04/2022 Code(s): I25.42 - Coronary artery dissection Plan: S/P NSTEMI and SCAD on 07/04/2022 (diagnosed by coronary angiogram) Continue aggressive risk factor modification Continue Propranolol ER 60 mg QD and Xarelto 20 mg QD She also used to take Atorvastatin 40 mg QD but is currently no longer on the Rx - states that she was advised that she no longer needs to continue on the medication Have advised her that her labs back in June 2023 showed that her LDL cholesterol level has practically doubled to 122 mg/dl from last year (was at 64 mg/dl in October 2022) - states that she was advised by her cardiology that it is okay as long as it does not go up any further Patient is advised to try to get her LDL cholesterol to at least under 100 mg/dl - reinforced low cholesterol diet Will recheck her labs and fasting lipids in 4 months for follow up (4) Asthma: Code(s): J45.909 - Unspecified asthma, uncomplicated Qualifiers: Asthma severity: moderate Asthma persistence: persistent Asthma complication type: uncomplicated Qualified Code(s): J45.40 - Moderate persistent asthma, uncomplicated Plan: Appears controlled Continue Breo Ellipta 200-25 mcg 1 inhalation QD and Albuterol HFA 2 inhalations Q 6 hours PRN Follow up with Pulmonary as scheduled (5) MAXIMUS (obstructive sleep apnea): Comment: CPAP Code(s): G47.33 - Obstructive sleep apnea (adult) (pediatric) Plan: Continue using her CPAP device when sleeping at night regularly She is currently still on autoCPAP at 15 to 20 cm H2O and has been using a CPAP device for over 6 years now Follow up with Sleep Medicine as scheduled (6) Acquired hypothyroidism: Code(s): E03.9 - Hypothyroidism, unspecified Plan: Continue Levothyroxine 50 mcg QD Will recheck her TFTs in 4 months for follow up (7) Impaired fasting glucose: Code(s): R73.01 - Impaired fasting glucose Plan: Reinforced low calorie/low carb diet, exercise as tolerated Her FBS was normal at 96 mg/dl and her HgbA1c was normal at 5.8% on her labs done back in June 2023 (8) Restless leg syndrome: Code(s): G25.81 - Restless legs syndrome Plan: Continue Gabapentin 600 mg Q HS (9) Allergic rhinitis: Code(s): J30.9 - Allergic rhinitis, unspecified Qualifiers: Allergic rhinitis trigger: unspecified Allergic rhinitis seasonality: non-seasonal Qualified Code(s): J30.89 - Other allergic rhinitis Plan: Continue Levocetirizine 5 mg QD PRN (10) Anxiety: Code(s): F41.9 - Anxiety disorder, unspecified Plan: Continue Bupropion SR 300 mg QD and Escitalopram 5 mg QD (11) Depression: Code(s): F32.A - Depression, unspecified Qualifiers: Depression Type: major depressive disorder Major depression recurrence: recurrent Active/Remission status: currently active Major depression episode severity: unspecified Qualified Code(s): F33.9 - Major depressive disorder, recurrent, unspecified Plan: Continue Bupropion SR 300 mg QD and Escitalopram 5 mg QD Follow up with psychiatry as scheduled (12) Morbid obesity with BMI of 50.0-59.9, adult: Code(s): E66.01 - Morbid (severe) obesity due to excess calories; Z68.43 - Body mass index [BMI] 50.0-59.9, adult Plan: Reinforced diet/exercise as tolerated/lose weight although she admits that her activity level is limited due to her multiple comorbidities but she does try to do at least some walking regularly She is currently on Semaglutide 0.5 mg SQ once a week to help her lose weight and has been able to lose several pounds since her last visit (13) Colon cancer screening: Code(s): Z12.11 - Encounter for screening for malignant neoplasm of colon Plan: She was previously referred to [facility] Gastro for screening colonoscopy (she has never had a colonoscopy done in the past) but she is now requesting to have this done at the [facility] instead and needs a new referral to be sent over to [facility]enterology Plan Follow up in 4 months Orders: Orders Lipid Panel 4 Months E78.00 - Pure hypercholesterolemia, unspecified Comprehensive [place]. Panel Fast 4 Months E78.00 - Pure hypercholesterolemia, unspecified Thyroid Stimulating Hormone 4 Months E03.9 - Hypothyroidism, unspecified Free T4 (Free Thyroxine) 4 Months E03.9 - Hypothyroidism, unspecified Hemoglobin A1c 4 Months R73.01 - Impaired fasting glucose Complete Blood Count Auto Diff 4 Months D64.9 - Anemia, unspecified Vitamin D 25-OH Total 4 Months E55.9 - Vitamin D deficiency, unspecified UA CC w/rflx Micro + Cult 4 Months R30.0 - Dysuria Referrals Gastroenterology Referral Z12.11 - Encounter for screening for malignant neoplasm of colon Coding Level of Care Code Est Pt Level 4 (35591) Complex EM visit Add On G2211 Diagnoses Atrial flutter, unspecified type I48.92 Atrial flutter type: unspecified Cardiac sarcoidosis D86.85 Spontaneous dissection of coronary artery I25.42 Moderate persistent asthma without complication J45.40 Asthma severity: moderate Asthma persistence: persistent Asthma complication type: uncomplicated MAXIMUS (obstructive sleep apnea) G47.33 Acquired hypothyroidism E03.9 Impaired fasting glucose R73.01 Restless leg syndrome G25.81 Non-seasonal allergic rhinitis, unspecified trigger J30.89 Allergic rhinitis trigger: unspecified Allergic rhinitis seasonality: non-seasonal Anxiety F41.9 Episode of recurrent major depressive disorder, unspecified depression episode severity F33.9 Depression Type: major depressive disorder Major depression recurrence: recurrent Active/Remission status: currently active Major depression episode severity: unspecified Morbid obesity with BMI of 50.0-59.9, adult E66.01; Z68.43 Colon cancer screening Z12.11 Additional Codes BRIAN-7 Assessment Billing - BRIAN-7 Assessment Tool: BRIAN-7 Assessment 93211 ([id number])
== END 2023-10-09 14:27 | disposition home or self-care (01) ==
PROVIDERS: PCP Internal Medicine; Visit Provider Internal Medicine
DX: I48.92 Unspecified atrial flutter (principal); F33.9 Major depressive disorder, recurrent, unspecified; Z68.43 Body mass index [BMI] 50.0-59.9, adult; E66.01 Morbid (severe) obesity due to excess calories; D86.85 Sarcoid myocarditis; I25.42 Coronary artery dissection; J45.40 Moderate persistent asthma, uncomplicated; G47.33 Obstructive sleep apnea (adult) (pediatric); E03.9 Hypothyroidism, unspecified; R73.01 Impaired fasting glucose; G25.81 Restless legs syndrome; J30.89 Other allergic rhinitis
CPT/HCPCS: 99214; G2211

== ENCOUNTER 2024-02-24 10:12 | Outpatient (AMB) | payer OTHER, SELFPAY ==
[2024-02-24 10:30] VITALS: BP 124/80; PULSE 70; TEMP 36.3; O2SAT 97; BMI 47.8
--- NOTE | 2024-02-24 10:30 | A.OFFPC_ITS ---
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 Required: No Accompanied by: Self / Same As Patient Allergies cyclobenzaprine [From Flexeril] Allergy (Intermediate, Verified 02/24/24 11:08) Hives diphenhydramine [From Benadryl] Allergy (Intermediate, Verified 02/24/24 11:08) Palpitations Medication List - Last Reconciled 02/24/24 by Keegan Sloan MD bupropion HCl SR 300 mg PO DAILY escitalopram oxalate 5 mg PO DAILY ferrous sulfate 200 mg PO DAILY fluticasone furoate-vilanterol 200-25 mcg/dose (Breo Ellipta) 1 inh inhalation DAILY folic acid 1 mg PO DAILY gabapentin 600 mg PO BEDTIME infliximab (Remicade) 100 mg IV Q6W levocetirizine (Xyzal) 5 mg PO DAILY PRN 90 days levothyroxine 50 mcg PO DAILY methotrexate sodium 10 mg PO QWEEK rivaroxaban (Xarelto) 20 mg PO DAILY semaglutide (weight loss) 1.7 mg subcut QWEEK Tobacco use date assessed: 02/24/24 Dental Screening Dental Screen Date: 02/24/24 Did you have a dental visit in the last 12 months?: No Did you have a dental problem in the last 6 months where you did not have access to dental care?: No Was dental information given to patient?: No HPI cardiac sarcoidosis, hypothyroidism HPI Details Patient comes in today for her follow up visit States that she currently feels okay States that cardiology took her off Diltiazem ER and Propranolol ER a few weeks ago and she has not had any recurrence of her cardiac symptoms since - denies any palpitations or chest pains She denies any headaches or dizziness Denies any SOB No nausea/vomiting, no abdominal pain No change in bowel habits noted She reportedly had her screening colonoscopy done at the [facility] last month (January 2024) and was advised that her colonoscopy came back normal and recommended she get a repeat colonoscopy in 10 yrs She was not able to get her follow up labs done prior to her appointment today [facility] Medical History (Updated 02/24/24 @ 19:14 by Keegan Sloan MD) Vitamin D deficiency Morbid obesity with BMI of 45.0-49.9, adult Morbid obesity with BMI of 50.0-59.9, adult Allergic rhinitis Impaired fasting glucose Acquired hypothyroidism Hx of coronary angiogram Cardiac resynchronization therapy defibrillator (WINEMAKER-D) in place Non-ST elevation (NSTEMI) myocardial infarction Spontaneous dissection of coronary artery Atrial flutter Cardiac sarcoidosis Myocardial infarction Surgical History Hx of cardiac catheterization History of cardiac radiofrequency ablation Family History Mother No problems noted. Father COPD (chronic obstructive pulmonary disease) Other Mental health disorder Substance use disorder Social History Housing: Condominium Alcohol intake: never Patient Tobacco Use Status: Never used Tobacco e-Cigarette/Vaping Use: Never Used Second Hand Smoke Exposure: No service: No Current occupational status: unemployed and disabled Current occupational exposures/hazards: No Cognitive needs: No Hearing needs: No Vision needs: Yes (glasses) Questionnaire PHQ-9 Over the last 2 weeks, how often have you been bothered by any of the following problems? 1. Little interest or pleasure in doing things: several days 2. Feeling down, depressed, or hopeless: several days 3. Trouble falling or staying asleep, or sleeping too much: more than half the days 4. Feeling tired or having little energy: more than half the days 5. Poor appetite or overeating: more than half the days 6. Feeling bad about yourself - or that you are a failure or have let yourself or your family down: several days 7. Trouble concentrating on things, such as reading the newspaper or watching television: several days 8. Moving or speaking so slowly that other people could have noticed. Or the opposite - being so fidgety or restless that you have been moving around a lot more than usual: not at all 9. Thoughts that you would be better off or of hurting yourself in some way: not at all Total score: 10 Depression Screening Interpretation: Positive Depression Screening Follow-up: Existing condition and In treatment Depression Screening Done: Yes 04555 - PHQ-9 Billing: Yes Source: Developed by Drs. Mat Mcwilliams, Livier Boykin, Yuri Anguiano and colleagues, with an educational estella from [employer]. Thrive Questionnaire Date Thrive assessed: 02/24/24 I am a: Patient What is your living situation today?: I have a steady place to live Within the past 12 months, did the food you bought not last and you didn't have the money to get more?: Never true Within the past 12 months, did you worry whether your food would run out before you got money to buy more?: Never true Do you have trouble paying for medicines?: No Do you have trouble getting transportation to medical appointments?: No Do you have trouble paying your heating and electricity bill?: No Do you have trouble taking care of your child, family member or friend?: No Do you have trouble with day-to-day activities such as bathing, preparing meals, shopping, managing finances, etc.?: No Are you currently unemployed and looking for a job?: No Are you interested in more education?: No Please select the resources that you would like help with: None Currently or been in a relationship where the following occur: No concerns reported THRIVE Score: 0 AUDIT C Alcohol Use Questionnaire (AUDIT-C) 1. How often do you have a drink containing alcohol?: Never 3. How often do you have six or more drinks on one occasion?: Never Total Score: 0 Score Reviewed/Action Taken: Yes BRIAN-7 AMB Questionnaire BRIAN-7 Date BRIAN - 7 assessed: 02/24/24 Feeling nervous, anxious, or on edge: 0 = Not at all Not being able to stop or control worryin = Not at all Worrying too much about different things: 0 = Not at all Trouble relaxin = Not at all Being so restless that it is hard to sit still: 0 = Not at all Becoming easily annoyed or irritable: 0 = Not at all Feeling afraid as if something awful might happen: 0 = Not at all Total BRIAN-7 score (0-4 normal; 5-9 mild; 10-14 moderate; 15-21 severe): 0 Source: Developed by Drs. Mat Mcwilliams, Livier Boykin, Yuri Anguiano and colleagues, with an educational estella from [employer]. BRIAN-7 Assessment Billing BRIAN-7 Assessment Tool: BRIAN-7 Assessment 60617 Review of Systems Const Denies chills, Denies fatigue, Denies fever(s) and Denies headache(s) ENT Denies dysphagia, Denies dizziness, Denies otalgia, Denies headache(s), Denies neck pain, Denies odynophagia and Denies sore throat Card Denies chest pain, Denies rapid heart rate, Denies irregular heart rhythm, Denies palpitations and Denies dyspnea Resp Denies chest congestion, Denies cough and Denies dyspnea GI Denies abdominal pain, Denies constipation, Denies dysphagia, Denies heartburn, Denies diarrhea, Denies nausea, Denies odynophagia and Denies vomiting Denies urinary frequency, Denies dysuria and Denies urinary urgency Musc Denies back pain, Denies arthralgias and Denies neck pain Skin/Breast Denies rash Neuro Denies dizziness, Denies headache(s) and Denies paresthesias Psych Denies anxiety and Denies depression Endo Denies fatigue and Denies palpitations Cordell/Lymph Denies easy bruising Physical exam (Primary Care) Vital Signs: Last Vital Signs Temp 97.3 F 02/24/24 10:30 Pulse 70 02/24/24 10:30 BP 124/80 02/24/24 10:30 Pulse Ox 97 02/24/24 10:30 Oxygen Delivery Method Room Air 02/24/24 10:30 BMI result Body Mass Index 47.8 Tobacco/Smoking Status: Tobacco use Status Tobacco use date assessed 02/24/24 02/24/24 10:33 Patient Tobacco Use Status Never used Tobacco 02/24/24 10:33 e-Cigarette/Vaping Use Never Used 02/24/24 10:33 PHQ-9: PHQ-9 Score PHQ-9: Total score 10 02/24/24 19:01 Depression Screening Interpretation: Positive Depression Screening Follow-up: Existing condition and In treatment Thrive Assessment: Date of Thrive Assessment Date Thrive assessed 02/24/24 02/24/24 10:33 Currently or been in a relationship where the following occur: No concerns reported Const General: no acute distress and alert HENMT Ears: TM's normal bilaterally and EAC's normal Throat: Yes posterior oropharynx normal and Yes tonsils normal (no TP congestion) Neck Neck: Yes supple and No lymphadenopathy Thyroid: Thyroid normal Resp Auscultation: clear to auscultation bilaterally, no rales and no wheezes Cardio Rate: regular rate Rhythm: regular rhythm Heart sounds: no murmurs GI Palpation (GI): Soft to palpation and nontender Auscultation: normal bowel sounds General: Yes no CVA tenderness Back/Spine/Pelvis Back: no CVA tenderness Skin Rashes: no rashes Extrem General: Yes no clubbing, cyanosis or edema Coding Level of Care Code Est Pt Level 4 (62564) Diagnoses Atrial flutter, unspecified type I48.92 Atrial flutter type: unspecified Cardiac sarcoidosis D86.85 Spontaneous dissection of coronary artery I25.42 Moderate persistent asthma without complication J45.40 Asthma complication type: uncomplicated Asthma persistence: persistent Asthma severity: moderate MAXIMUS (obstructive sleep apnea) G47.33 Acquired hypothyroidism E03.9 Impaired fasting glucose R73.01 Restless leg syndrome G25.81 Non-seasonal allergic rhinitis, unspecified trigger J30.89 Allergic rhinitis seasonality: non-seasonal Allergic rhinitis trigger: unspecified Vitamin D deficiency E55.9 Anxiety F41.9 Episode of recurrent major depressive disorder, unspecified depression episode severity F33.9 Active/Remission status: currently active Depression Type: major depressive disorder Major depression episode severity: unspecified Major depression recurrence: recurrent Morbid obesity with BMI of 45.0-49.9, adult E66.01; Z68.42 Additional Codes BRIAN-7 Assessment Billing - BRIAN-7 Assessment Tool: BRIAN-7 Assessment 43213 ([id number]) PHQ-9 - 98812 - PHQ-9 Billing: Yes ([id number]) Assessment & Plan Assessment & Plan (1) Atrial flutter: Comment: S/P ablation on 06/25/22 Code(s): I48.92 - Unspecified atrial flutter Category: Medical Qualifiers: Atrial flutter type: unspecified Qualified Code(s): I48.92 - Unspecified atrial flutter Plan: S/P cardiac ablation in June 2022 and again in August 2023 at the [facility] in [place], [place] She also had her pacemaker adjusted at [facility] in 05/2023 when she presented there with tachycardia She was previously on Diltiazem CD 240 mg QD and Propranolol ER 60 mg QD but these have both been discontinued by cardiology several weeks ago - states that she has not had any recurrence of her symptoms since Follow up with cardiology as scheduled - she goes to cardiology at the [facility] in [facility] (2) Cardiac sarcoidosis: Comment: S/P WINEMAKER-D ([employer]) in 2021 Code(s): 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 Category: Medical Plan: S/P WINEMAKER-D in 2021 Continue Methotrexate 10 mg once a week and Remicade 100 mg IV Q 6 weeks (3) Spontaneous dissection of coronary artery: Comment: SCAD - 07/04/2022 Code(s): I25.42 - Coronary artery dissection Category: Medical Plan: S/P NSTEMI and SCAD on 07/04/2022 (diagnosed by coronary angiogram) Continue aggressive risk factor modification Continue Xarelto 20 mg QD; Propranolol ER has been discontinued by cardiology She also used to take Atorvastatin 40 mg QD but is currently no longer on the Rx - states that she was advised that she no longer needs to continue on the med ication Have advised her that her labs back in June 2023 showed that her LDL cholesterol level has practically doubled to 122 mg/dl from last year (was at 64 mg/dl in October 2022) - states that she was advised by her cardiology that it is okay as long as it does not go up any further Patient is advised to try to get her LDL cholesterol to at least under 100 mg/dl - reinforced low cholesterol diet Will recheck her labs and fasting lipids in 4 months for follow up - she was not able to get her labs done prior to this appointment and will just have her get them done in 4 months (current lab orders are all updated for her next lab draw in late May or June 2024) (4) Asthma: Code(s): J45.909 - Unspecified asthma, uncomplicated Category: Medical Qualifiers: Asthma complication type: uncomplicated Asthma persistence: persistent Asthma severity: moderate Qualified Code(s): J45.40 - Moderate persistent asthma, uncomplicated Plan: Appears controlled Continue Breo Ellipta 200-25 mcg 1 inhalation QD and Albuterol HFA 2 inhalations Q 6 hours PRN Follow up with Pulmonary as scheduled (5) MAXIMUS (obstructive sleep apnea): Comment: CPAP Code(s): G47.33 - Obstructive sleep apnea (adult) (pediatric) Category: Medical Plan: Continue using her CPAP device when sleeping at night regularly She is currently still on autoCPAP at 15 to 20 cm H2O and has been using a CPAP device for over 6 years now Follow up with Sleep Medicine as scheduled (6) Acquired hypothyroidism: Code(s): E03.9 - Hypothyroidism, unspecified Category: Medical Plan: Continue Levothyroxine 50 mcg QD Will recheck her TFTs in 4 months for follow up (7) Impaired fasting glucose: Code(s): R73.01 - Impaired fasting glucose Category: Medical Plan: Reinforced low calorie/low carb diet, exercise as tolerated Her FBS was normal at 96 mg/dl and her HgbA1c was normal at 5.8% on her labs done back in June 2023 Will recheck these in 4 months for follow up (8) Restless leg syndrome: Code(s): G25.81 - Restless legs syndrome Category: Medical Plan: Continue Gabapentin 600 mg Q HS (9) Allergic rhinitis: Code(s): J30.9 - Allergic rhinitis, unspecified Category: Medical Qualifiers: Allergic rhinitis seasonality: non-seasonal Allergic rhinitis trigger: unspecified Qualified Code(s): J30.89 - Other allergic rhinitis Plan: Continue Levocetirizine 5 mg QD PRN (10) Vitamin D deficiency: Code(s): E55.9 - Vitamin D deficiency, unspecified Category: Medical Plan: Continue Vitamin D3 2000 units QD Will recheck her Vitamin D level in 4 months for follow up (11) Anxiety: Code(s): F41.9 - Anxiety disorder, unspecified Category: Medical Plan: Continue Bupropion SR 300 mg QD and Escitalopram 5 mg QD (12) Depression: Code(s): F32.A - Depression, unspecified Category: Medical Qualifiers: Active/Remission status: currently active Depression Type: major depressive disorder Major depression episode severity: unspecified Major depression recurrence: recurrent Qualified Code(s): F33.9 - Major depressive disorder, recurrent, unspecified Plan: Continue Bupropion SR 300 mg QD and Escitalopram 5 mg QD Follow up with psychiatry as scheduled (13) Morbid obesity with BMI of 45.0-49.9, adult: Code(s): E66.01 - Morbid (severe) obesity due to excess calories; Z68.42 - Body mass index [BMI] 45.0-49.9, adult Category: Medical Plan: Reinforced diet/exercise as tolerated/lose weight She has been able to lose about 6 pounds since her last visit in September 2023 and over 20 pounds since May 2023 on Semaglutide She is currently on Semaglutide 1.7 mg weekly and states that this is going to be increased all the way up to 2.4 mg at her next Rx refill Follow up with weight management as scheduled Plan Follow up in 4 months Medications: New cholecalciferol (vitamin D3) 50 mcg PO DAILY 90 days 90 caps 3RF E55.9 - Vitamin D deficiency, unspecified
--- OUTSIDE RECORDS SUMMARY | 2024-02-24 11:32 | XMS_ITS | Data Portability ---
Author Organization [facility], , [facility] Address [address] [place] [address] Care Team Providers Care Audio Visual Production Specialist Name Role Phone BARBRA SCHAFFER Primary Care Provider PAULO MCDERMOTT Primary Care Provider Unavailabl e Assessment No assessment recorded. Plan of Treatment Reminders Order Date Submit Date Provider Last Modified By Organization Details Last Modified Time Details Appointments None record ed. Lab None record ed. Referral None record ed. Procedures None record ed. Surgeries None record ed. Imaging None record ed. Medication Orders None record ed. Patient TargetsNo targets recorded. Patient InstructionsNo instructions recorded. Reason for Referral None Reported. Problems Name Problem SNOMED Code Status Onset Date Resolution Date Notes Provider Name and Address Organization Details Recorded Time Cellulitis and abscess of toe 256265039 Completed 200812/29/2012 Aaliyah Schmitt NP [address] [place], [address], [facility] 5 09:27:36 Ingrowing nail 184599826 Completed 200812/29/2012 Aaliyah Schmitt NP [address] [place], [address], [facility] 5 09:27:36 Morbid obesity 444318068 Active Aaliyah Schmitt NP [address] [place], [address] , [facility] 5 09:27:36 Major depressive disorder 208273882 Active Aaliyah Schmitt NP [address] [place], [address], [facility] 5 09:37:26 Sleep apnea 97621704 Active 2015 Aaliyah Schmitt, MEG [address] [facility] [place], [address], [facility] 6 09:43:32 Asthma 132042098 Active 2015 Aaliyah Schmitt, MEG [address] [place], [address], [facility] 6 10:18:43 Notes:Pt here for spirometry . reports Proair makes her feel dizzy and heart rate increases. Problem Notes None recorded. Procedures Surgical History Date Name Laterality Status Provider Name and Address Organization Details Recorded Time 55517: Therapeutic Exercise completed Carson De PT, DPT, [address], [address], [facility] 05/01/2020 11:08:26 80218: Therapeutic Exercise completed Carson De PT, DPT, [address], [address], [facility] 04/20/2020 12:11:00 1 69108: Therapeutic Exercise completed Carson De PT, DPT, [address], [address], [facility] 04/10/2020 16:21:34 1 56218: Therapeutic Exercise completed Carson De PT, DPT, [address], [address], [facility] 03/26/2020 10:49:41 1 61483: Therapeutic Exercise completed Carson De PT, DPT, [address], [address], [facility] 03/05/2020 11:34:44 1 24565: Therapeutic Exercise completed Carson De PT, DPT, [address], [address], [facility] 02/14/2020 16:06:25 0 89637: Therapeutic Exercise completed Carson De PT, DPT, CSC [address] [place], [address], [facility] 01/16/2020 17:03:23 0 42360: Therapeutic Exercise completed Carson De, PT, DPT, CSC [address] [place], [address], [facility] 01/02/2020 16:33:55 0 Physical Activity Counselling completed Carson De, PT, DPT, CSC [address] [place] [address], [address], [facility] 12/20/2019 10:31:58 0 77964: PT Eval, Moderate Complexity completed Carson De, PT, DPT, CSC [address] [place] [address], [address], [facility] 12/20/2019 10:28:08 5 Treatment and Advice completed Nancy Stringer PT [address] [place], [address], [facility] 11/14/2014 16:57:54 5 Treatment and Advice completed Nancy Stringer PT [address] [place] [address], [address], [facility] 10/30/2014 17:25:31 Imaging Results None recorded. Procedure Notes None recorded. Medical Equipment None Reported. Allergies Allergen ID Allergen Name Allergen Category Reaction Reaction Severity Criticality Documentation Date Start Date Code Code System Note Provider Name and Address Organization Details Recorded Time [id number] cyclobenz aprine hydrochlo ride medicatio n Not available Not available Not available 06/07/2014 61823 RxNorm Janette Salazar MA [facility] 5 13:58:26 Medications Name Sig Start Date Stop Date Status Note LastModified by Organization Details LastModified Time carisopro dol 350 mg tablet active Not Available Not Available No t Available amoxicill in 500 mg capsule 08/14 completed Not Available Not Available Not Available Qvar 80 mcg/actua tion Metered Aerosol oral inhaler Inhale 2 puffs twice a day by inhalati on route as directed . 2015 active pt is not taking this medicati on 03-03-16 KB Not Available Not Available Not Available bupropion HCl SR 150 mg tablet,12 hr sustained -release TAKE 1 TABLET BY MOUTH EVERY DAY active Not Available Not Available No t Available atorvasta tin 80 mg tablet TAKE 1 TABLET BY MOUTH EVERY DAY active Not Available Not Available No t Available gabapenti n 600 mg tablet active Not Available Not Available Not Available trazodone 50 mg tablet active Not Available Not Available Not Available diltiazem CD 180 mg capsule,e xtended release 24 hr TAKE ONE CAPSULE BY MOUTH DAILY active Not Available Not Available No t Available prednison e 20 mg tablet TAKE 2 TABS BY MOUTH DAILY X 3 DAYS, THEN 1 TAB DAILY X 3 DAYS. active Not Available Not Available No t Available propranol ol ER 60 mg capsule,2 4 hr,extend ed release TAKE 1 CAPSULE BY MOUTH EVERY DAY active Not Available Not Available No t Available topiramat e 25 mg tablet active Not Available Not Available Not Available clopidogr el 75 mg tablet TAKE 1 TABLET BY MOUTH DAILY active Not Available Not Available No t Available aspirin 81 mg tablet,de layed release TAKE 1 TABLET BY MOUTH DAILY active Not Available Not Available No t Available amoxicill in 500 mg tablet Take 2 tablets 3 times a day by oral route. 08/14 completed Not Available Not Available Not Available levothyro xine 25 mcg tablet active Not Available Not Available Not Available lamotrigi ne 25 mg tablet active Not Available Not Available Not Available Kenalog 40 mg/mL suspensio n for injection 2014 active Not Available Not Available Not Avai lable cyprohept adine 4 mg tablet active Not Available Not Available No t Available citalopra m 20 mg tablet TAKE 1 AND 1/2 TABLETS BY MOUTH EVERY DAY active Not Available Not Available No t Available Nitrostat 0.4 mg sublingua l tablet 09/17 completed Not Available Not Available Not Available levothyro xine 50 mcg tablet TAKE 1 TABLET BY MOUTH EVERY DAY active Not Available Not Available No t Available mometason e 50 mcg/actua tion nasal spray active Not Available Not Available Not Available monteluka st 10 mg tablet TAKE 1 TABLET BY MOUTH EVERY EVENING active Not Available Not Available No t Available Ritalin 5 mg tablet Take 1 tablet every day by oral route. active Not Available Not Available No t Available zolpidem 10 mg tablet TAKE 1 TABLET BY MOUTH EVERYDAY AT BEDTIME active Not Available Not Available No t Available ketoconaz ole 2 % topical cream APPLY TO THE AFFECTED AREA(S) BY TOPICAL ROUTE ONCE DAILY x2-4 WEEKS active Not Available Not Available No t Available topiramat e 100 mg tablet active Not Available Not Available Not Available methylphe nidate ER 18 mg tablet,ex tended release 24 hr 07/27 completed dose increase d Not Available Not Available Not Available fluticaso ne propionat e 50 mcg/actua tion nasal spray,mariana pension Inhale 2 sprays every day by intranas al route as directed . active Not Available Not Available No t Available loratadin e 10 mg tablet Take 1 tablet every day by oral route as directed . 2014 active Not Available Not Available Not Avai lable naproxen 500 mg tablet Take 1 tablet twice a day by oral route for 30 days. active Not Available Not Available No t Available diazepam 5 mg tablet Take 1 tablet twice a day by oral route as needed for 10 days. active Not Available Not Available No t Available amoxicill in 875 mg-potass ium clavulana te 125 mg tablet active Not Available Not Available Not Available methylphe nidate ER 27 mg tablet,ex tended release 24 hr active Not Available Not Available Not Available bupropion HCl SR 200 mg tablet,12 hr sustained -release active Not Available Not Available Not Available bupropion HCl XL 150 mg 24 hr tablet, extended release Take 1 tablet every day by oral route. active Not Available Not Available No t Available escitalop nish 5 mg tablet TAKE 1 TABLET BY MOUTH EVERY DAY active Not Available Not Available No t Available Flovent HFA 110 mcg/actua tion aerosol inhaler Inhale 2 puffs twice a day by inhalati on route for 30 days. active pt is not taking this medicati on 03-03-16 KB Not Available Not Available Not Available Atrovent HFA 17 mcg/actua tion aerosol inhaler INHALE 2 PUFFS INTO THE LUNGS EVERY HOURS NEEDED active Not Available Not Available No t Available [place] 3 Fish Oil 09/17 completed Not Available Not Available Not Available ProAir HFA 90 mcg/actua tion aerosol inhaler Inhale 2 puffs every 4 hours by inhalati on route for 30 days. 2015 active pt is not taking this medicati on 03-03-16 KB Not Available Not Available Not Available Xopenex HFA 45 mcg/actua tion aerosol inhaler Inhale 2 puffs every 6 hours by inhalati on route as needed. 2015 active pt is not taking this medicati on 03-03-16 KB Not Available Not Available Not Available Pulmicort Flexhaler 180 mcg/actua tion breath activated INHALE 2 PUFFS BY MOUTH DAILY active Not Available Not Available No t Available Flovent Diskus 08/14 completed Not Available Not Available Not Available azelastin e 205.5 mcg (0.15 %) nasal spray active Not Available Not Available Not Available Probiotic 09/17 completed Not Available Not Available Not Available Genevieve Allergy active Not Available Not Available Not Available OptiChamb er Pearl [facility] spacer active Not Available Not Available Not Available MigreLief 200 mg-180 mg-50 mg tablet TAKE 1 TABLET BY MOUTH EVERY DAY active Not Available Not Available No t Available desvenlaf axine succinate ER 25 mg tablet,ex tended release 24 hr active Not Available Not Available Not Available Vitals None Recorded Social History Question Answer Notes LastModified by Organizat ion Details LastModified Time Tobacco Smoking Status Never Smoker PAUL Mancilla, [facility] 06/07/2014 14:01:46 What Is Your Level Of Alcohol Consumption? None Very Rare Information not available 06/07/2014 Do You Wear A Helmet When Biking? Yes Information not available 09/18/2015 What Is Your Level Of Caffeine Consumption? Moderate Information not available 06/07/2014 How Much Tobacco Do You Chew? None Information not available 06/07/2014 What Type Of Diet Are You Following? 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 0 Information not available 06/07/2014 Are There Any Guns Present In Your Home? No Information not available 06/07/2014 Live Alone Or With Others? With Others Information not available 06/07/2014 Does The Patient Have Difficulty Speaking Occitan? No Information not available 06/07/2014 Does The Patient Have Difficulty Reading Occitan? No Information not available 06/07/2014 Patient Has Health Care Proxy Signed And In Chart No 10/27/2014, 01/16/15 Information not available 06/07/2014 Marital Status [email or web address] Informati on not available 10/27/2014 Mosquito Repellent Used Routinely Yes Information not available 09/18/2015 How Many Children Do You Have? 0 Information not available 06/07/2014 Seat Belts Used Routinely Yes Information not available 06/07/2014 Are You Sexually Active? Yes Information not available 06/07/2014 Smoke Alarm In Home Yes Information not available 06/07/2014 General Stress Level Medium Information not available 06/07/2014 Do You Use Sunscreen Routinely? Yes Information not available 09/18/2015 Sex: Unknown Functional Status None recorded. Mental Status None recorded. Family History Relationship Description Onset Age of this Age Resolved Age Notes LastModified by Organization Details LastModified Time Father Chronic obstructive pulmonary disease [email or web address] Not available 06/02 13:41:01 Maternal Grandfather Heart disease [email or web address] Not available 06/02 13:41:01 Notes:No siblings. Father [place] Emphysema. Maternal Grandmother- melanoma. Medical History Condition Response Anxiety Y Sleep Apnea Y Allergic Rhinitis Y PSYCHIATRIC Y Depression Y Allergies Y Asthma Y Gynecological HistoryNo gynecological history recorded. Obstetrics History GPAL:G 0 P 0 0 0 0 Immunizations Vaccine Type Date Status Note Provider Nam e and Address Organization Details Recorded Time Influenza, split virus, quadrivalent, PF 10/27/2014 completed Not Available [facility] 0 02:37:19 Tdap 08/15/2015 completed Not Available [facility] 02/26/2019 02:20:39 Influenza, split virus, quadrivalent, PF 04/15/2016 completed Not Available [facility] 0 02:21:34 Past Encounters Encounter ID Performer Location Encounter Start Date Encounter Closed Date Diagnosis/Indication Diagnosis SNOMED-CT Code Diagnosis ICD10 Code Diagnosis Note [id number] Podiatry, [facility] [address] [place] [address] 08/28/2008 11:27:29 08/28/2008 16:17:39 [id number] Podiatry, [address] [place] [address] 09/05/2008 10:37:05 09/05/2008 16:28:17 [id number] [facility], OFFICE [address] [place] [address] 06/07/2014 13:50:10 06/07/2014 14:35:10 Adult health examination 128172773 see Risk Assessment and Lifestyle Change Counseling section above HM: Pap utd (per pt); given med record release to get from [facility] labs w/I year Counseling [id number] Allergic rhinitis 21410814 Persistent with little relief with Claritin Could not tolerate Benadryl or zyrtec, Genevieve not helpful Given kenalog 60 mg IM; tolerated well referral to stitcher tape controlled machine. Morbid obesity 603103338 discussed importance /impact of weight loss with regular exercise, low fat diet will work on increasing exercise, less unhealthy foods. [id number] Jasmin Reyes [facility], OFFICE [address] [place] [address] 07/27/2014 17:20:44 08/15/2014 16:10:57 Mild intermittent asthma 309524891 Use proair first to open lungs, then use flovent. Use flovent for a couple of weeks to calm inflammati on. Rinse mouth after flovent use. Proair is used for rescue and wheezing. right now she is having an acute exacerbati on related to chemical exposure. Will use steroid to calm things down and then she will back down to proair only prn. 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 [id number] Aaliyah Schmitt NP , [facility], OFFICE [address] [place] [address] 08/03/2014 10:26:37 08/03/2014 11:04:15 Allergic rhinitis 80860445 Dyspnea 255493224 [id number] Kayla Phillips [facility], [facility] [address] [place] [address] 08/07/2014 08:45:49 08/07/2014 12:48:16 [id number] Mary Bryson , [facility], OFFICE [address] [place] [address] 10/27/2014 07:57:39 10/27/2014 08:44:01 Low back pain 988107582 Influenza vaccine needed 9320196468 093 [id number] Maribel Kaity [facility], [address] [address] 10/30/2014 17:05:59 10/31/2014 10:02:17 Low back pain 332626967 [id number] Nancy Stringer, PT Physical Therapy, [address] [address] 11/14/2014 16:32:19 11/14/2014 17:05:39 Low back pain 678651399 M54.5 [id number] Jaelyn Watt , [facility], OFFICE [address] [place] [address] 01/16/2015 09:19:26 01/16/2015 09:38:14 Major depressive disorder 736832402 F32.9 stable on meds for years will take over prescribin g RF today [id number] Bailey Gomez MD , [facility], OFFICE [address] [place] [address] 06/01/2015 16:34:34 06/01/2015 17:05:33 Acute otitis media 1125806 H65.01 R ear, she has a nasonex at home, adviced to use it and counseled about proper use and ABx , see below [id number] Aaliyah Schmitt NP , [facility], OFFICE [address] [place] [address] [place] [address] 08/15/2015 08:13:22 08/15/2015 08:51:48 Active or passive immunization 374955158 Z23 Acute non- ST segment elevation myocardial infarction 966771921 I21.4 stabledoin g well with medsEvent monitor was nmlsleep study just performed last nightDrUday Shah treating her as CAD Coronary arteriosclerosis 86976159 I25.10 stable doing well with meds Hearing loss 84787964 H9 1.93 will refer to audiologym ay need to consider ENT referral too Asthma 311508065 J45.90 9 worsening past several weekssimil iar sxs last year, same timesuspec t allergic componentw ill start singulair 10 mgc/w flovent bidf/u prn Foot pain 92051437 M79.6 71 low suspicion of fx- been able to bear weight throughout advised ice, rest elevationf /u prn [id number] Aaliyah Schmitt NP , [facility], OFFICE [address] [place] [address] 09/18/2015 13:58:13 09/18/2015 15:40:44 Adult health examination 664162416 Z00.00 see Risk Assessment and Lifestyle Change Counseling section aboveHM: Pap today Counseling 985525705 Z71 .9 Screening for malignant neoplasm of cervix 957910916 Z12.4 Acute non- ST segment elevation myocardial infarction 893180214 I21.4 stabledoin g well with medsEvent monitor was nmlsleep study showed mild MAXIMUS- will trial cpapDr. Porway treating her as CAD Coronary arteriosclerosis 69599551 I25.10 stable doing well with meds Asthma 392569657 J45.90 9 some improvemen t with singulairs till intermitte nt SOBwill see how she does with upcoming weekwill schedule gilberto Foot pain 14910496 M79.6 71 toe still hurts s/p fan injurywill give it more time. [id number] MEG Umanzor, [facility], OFFICE [address] [place] [address] 10/01/2015 09:37:26 10/01/2015 10:23:34 Asthma 870424956 J45.909 [place] normalc/t have dyspneabet ter in controlled environmen tflovent not helpful and does not tolerate ProAirwill d/c bothstart qvar bid and try xopenex for rescue, if any tachycardi a will d/cf/u 3 weeks via portal Fatigue 81372107 R53.83 likely r/t deconditio [facility] check labsdenies any cp or dypnea on exertion [id number] MD EBEN Pryor, [facility], OFFICE [address] [place] [address] 03/04/2016 16:27:10 03/05/2016 08:16:22 Candidiasis of skin 29370128 B37.2 Yeast-like appearing rash in perianal area. Recommend ketoconazo le cream. If no improvemen t in a few weeks, please call back. Hemorrhoids 17161171 K64 .9 Encourage increased dietary fiber, water, and exercise. Preparatio n H made itching and discomfort worse, likely due to underlying yeast infection. Sx seem to be more related to yeast infection, but hemorrhoid s also present on exam and pt has straining with BM. Chest discomfort 7369357 [address]07[address] on 02/28 who r/o cardiac etiology. Lungs clear on exam. Will check x-ray as baseline and send pt back to sleep medicine. She got initial relief with CPAP in 09/2015, but effects seem to have worn off so maybe an adjustment of the CPAP settings would be beneficial . If symptoms worsen or any new symptoms develop, please call back. [id number] BIRGIT Chambers , [facility], OFFICE [address] [place] [address] 04/14/2016 16:47:25 04/15/2016 14:02:55 Active or passive immunization 115443526 Z23 Candidiasis of skin 4988 3006 B37.2 Yeast-like appearing rash in perianal area. Recommend continued use of ketoconazo le cream for 4-6 weeks. Can also try a barrier cream like A&D ointment or desitin. Encourage keeping the area as dry and clean as possible. Hemorrhoids 43209839 K64 .9 Encourage increased dietary fiber, water, and exercise. Can also try miralax and/or stool softener to ease straining with BM. Morbid obesity 564683924 E66.01 Encourage pt to continue working on diet and exercise. [id number] Carson De, PT, DPT, CSC Physical Therapy, [facility] [address] [place] [address] 12/20/2019 10:26:59 12/20/2019 11:57:25 Pain in right knee 0238919110 06429 M25.561 Pt is a 44 y.o. female with ? 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 Patient requires a potential combo of skilled in-person and virtual physical therapy in order to safely and effectivel y progress their rehabilita tion to gain maximal functional outcome with as much symptom resolution as possible. Patient Goals: Independen tly resolve pain in order to return to normal function including prolonged standing, walking, up/downsta irs Clinical Goals: Provide tools/stra tegies for pt to independen tly achieve: full and pain-free R knee AROM/joint mobility; increase strength of RLE stabilizat ion muscles; understand ing regarding posture/chelle dy mechanics Treatment Plan: patient will virtually follow up as needed up to 1-2x/week for up to 12 weeks Treatment to Include education on: therapeuti c exercises/ activities , neuromuscu lar re-educati on, HEP prescripti on, modalities PRN, edema massage, manual therapy, ROM. [id number] Carson De, PT, DPT, CSC Physical Therapy, [address] [address] 01/02/2020 15:56:49 01/02/2020 16:47:32 Pain in right knee 9948209844 87564 M25.561 Pt understood all concepts discussed and feels well informed on what positions/ movements to avoid on top of modifing her kneeling activities with a pad. Pt with no complaints with progressio n of HEP and will follow up in 2 weeks. [id number] Carson De, PT, DPT, CSC Physical Therapy, [address] [address] 01/16/2020 16:03:45 01/16/2020 17:07:07 Pain in right knee 4747400699 44013 M25.561 Pt understood concepts discussed and will attempt to make several modificati ons to allow for pt to get closer to the ground without pain. Pt with several follow up questions regarding completion of bridging combo, but otherwise with no complaints . Pt to follow up in 2 weeks. [id number] Carson De, PT, DPT, CSC Physical Therapy, [address] [address] 02/14/2020 14:59:57 02/16/2020 08:46:02 Pain in right knee 7581888938 99957 M25.561 Though frustrated , pt understood concepts discussed. With out conversati on, pt does admit that on the days she wakes up feeling good, she admittedly does too much to maximize the fact that she's feeling better, but, in fact, could actually be causing herself to feeling worse later. With the tools and strategies discussed today, pt feels more capable in managing symptoms in real time. Pt to follow up in3 weeks. [id number] Carson De, PT, DPT, CSC Physical Therapy, [address] [address] 03/05/2020 09:12:31 03/05/2020 13:39:52 Pain in right knee 7373175858 62985 M25.561 Though pt is understand ably frustrated with ongoing symptoms, pt is hopeful, and in agreement, regarding our plan after cortisone injection on 03/15. Pt will follow up after. [id number] Carson De, PT, DPT, CSC Physical Therapy, [address] [address] 03/26/2020 09:23:50 03/26/2020 10:54:40 Pain in right knee 7934492918 54070 M25.561 Most of our conversati on was about pain management as pt recognizes this is the most important in order to facilitate strength changes. Pt will think about all of the options we discussed. Pt with no complaints with progressio n of HEP and will follow up in 2 weeks. [id number] Carson De, PT, DPT, CSC Physical Therapy, [address] [address] 04/10/2020 15:35:24 04/10/2020 17:00:45 Pain in right knee 4079859947 51800 M25.561 Pt describes implementa tion of the tools and strategies we discussed plus more regular completion of HEP which seems to be leading to subjective improvemen t of pain. In turn, this provides positive feedback to continue and keep up with HEP. Pt is pleased. Pt to follow up 1.5 weeks for 2 more visits prior to this provider leaving practice. [id number] Carson De, PT, DPT, [facility], [address] [id number] 04/20/2020 10:58:56 04/20/2020 12:21:15 Pain in right knee [id number] M25.561 Pt is gaining more and more confidence in her capacity to self manage symptoms with tools, strategies and HEP provided. Pt notes challenge with the idea of sit to stand, but recognizes the importance of it. Pt otherwise with no complaints with progressio n. Pt with 2 more appointmen ts with this provider prior to provider leaving practice. [id number] Carson De, PT, DPT, [facility], [address] [id number] 05/01/2020 10:25:17 05/01/2020 11:14:22 Pain in right knee [id number] M25.561 Pt endorses improvemen ts in R knee AROM to pain-free baseline. Though pt is not 100% pain-free within functional activities , pt has tools/stra tegies to manage and feels confident with utilizing her extensive HEP to continue to progress functional strength. Pt is independen t with this utilizatio n and is thus discharged . Health Concerns Section Related Observation LastModified by Organization Detai ls LastModified Time None Recorded Concern Status LastModified by Organization Details LastModified Time None Recorded Advance Directives Directive None Recorded Payers Encounter Date Sequence Insurance Name Policy Number Policy Painting Covered Member ID Painting Member ID Guarantor Name 03/05/2020 1 [facility] DIRECT CONNECTORCARE TYPE III (HMO) [id number] Deanna A Milens [id number] [facility] 03/26/2020 1 [facility] - DIRECT CONNE[employer]CARE TYPE III (HMO) [id number] Deanna A Milens [id number] 01 [facility] 04/10/2020 1 [facility] - DIRECT CONNECTORCARE TYPE III (HMO) [id number] Deanna A Milens [id number] 01 [facility] 04/20/2020 1 [facility] - DIRECT CONNECTORCARE TYPE III (HMO) [id number] Deanna A Milens [id number] 01 Deanna Milens 05/01/2020 1 [facility] - DIRECT CONNECTORCARE TYPE III (HMO) [id number] Deanna A Milens [id number] 01 [facility] Notes Date Note Type Note Provider Name and Address Organization Details Recorded Time 03/05/2020 text/html PT Initial Eval*Reported bypatient.History: Chief complaint: (R knee pain (under the knee cap laterally as well as posterior knee into calf), known bilateral OA); Mechanism of injury: (Twisting moment due to tripping while hiking); Duration: (Acute (Fall) on chronic); History of L knee pain: more mild, has had PT for this in the past R handed Cortisone shot (12/12) Symptom duration:frequentl y Symptom change:symptoms are not changing Symptom quality:sharp; Achy Aggravating Factors:lying down (On sides); sitting (Prolonged with knee at right angle ); standing ( all day --at the end of the work day); walking; upstairs; downstairs Alleviating Factors:medication s (Ibuprofen); ice; position change; Cortisone injection Prior Treatments:injecti on Work:part-time; [employer] Activities/Hobbies /Exercise:Walking, yoga/stretching Pt notes knee pain is not necessarily getting worse, but remains unmanaged. Given the daily stress that work provides, pt notes she is in a constant state of inflammation/irrit ation that even the exercises are not managing and contributing to the stress. Eligible for another cortisone injection first week of March Carson De, PT, DPT, [address], [phone], [facility] 03/05/2020 11:35:38 03/26/2020 text/html PT Initial Eval*Reported bypatient.History: Chief complaint: (R knee pain (under the knee cap laterally as well as posterior knee into calf), known bilateral OA); Mechanism of injury: (Twisting moment due to tripping while hiking); Duration: (Acute (Fall) on chronic); History of L knee pain: more mild, has had PT for this in the past R handed Cortisone shot (12/12) Symptom duration:frequentl y Symptom change:symptoms are not changing Symptom quality:sharp; Achy Aggravating Factors:lying down (On sides); sitting (Prolonged with knee at right angle ); standing ( all day --at the end of the work day); walking; upstairs; downstairs Alleviating Factors:medication s (Ibuprofen); ice; position change; Cortisone injection Prior Treatments:injecti on Work:part-time; [employer] Activities/Hobbies /Exercise:Walking, yoga/stretching Pt follows up after cortisone injection on 03/15. Pt states she stayed true to course regarding our plan around the cortisone injection including the tissue healing exercises. Overall, however, pt notes injection only helped to take the edge of but the bulk of the pain is still there. Walking is still the most painful, and limitedly Carson De, PT, DPT, [facility] [address] [place], [phone], [facility] 03/26/2020 10:50:59 04/10/2020 text/html PT Initial Eval*Reported bypatient.History: Chief complaint: (R knee pain (under the knee cap laterally as well as posterior knee into calf), known bilateral OA); Mechanism of injury: (Twisting moment due to tripping while hiking); Duration: (Acute (Fall) on chronic); History of L knee pain: more mild, has had PT for this in the past R handed Cortisone shot (12/12) Symptom duration:frequentl y Symptom change:symptoms are not changing Symptom quality:sharp; Achy Aggravating Factors:lying down (On sides); sitting (Prolonged with knee at right angle ); standing ( all day --at the end of the work day); walking; upstairs; downstairs Alleviating Factors:medication s (Ibuprofen); ice; position change; Cortisone injection Prior Treatments:injecti on Work:part-time; [employer] Activities/Hobbies /Exercise:Walking, yoga/stretching Pt states I do think some things are better. Pt feels she ended up having a delayed benefit from the cortisone injection as she has started to feel like it is now working. Pt has also figured out that if she completes tissue healing exercises immediately after a walk, it helps mitigate the stress from the walk and generally feels better. Carson De, PT, DPT, [facility] [address] [place], [phone], [facility] 04/10/2020 16:23:02 04/20/2020 text/html PT Initial Eval*Reported bypatient.History: Chief complaint: (R knee pain (under the knee cap laterally as well as posterior knee into calf), known bilateral OA); Mechanism of injury: (Twisting moment due to tripping while hiking); Duration: (Acute (Fall) on chronic); History of L knee pain: more mild, has had PT for this in the past R handed Cortisone shot (12/12) Symptom duration:frequentl y Symptom change:symptoms are not changing Symptom quality:sharp; Achy Aggravating Factors:lying down (On sides); sitting (Prolonged with knee at right angle ); standing ( all day --at the end of the work day); walking; upstairs; downstairs Alleviating Factors:medication s (Ibuprofen); ice; position change; Cortisone injection Prior Treatments:injecti on Work:part-time; [employer] Activities/Hobbies /Exercise:Walking, yoga/stretching Pt continues to note items that feel improved, albeit very slow to occur and to be noticeable. Most notably, pt states I dont feel as worn out at the end of my work week. Carson De, PT, DPT, [address], [phone], [facility] 04/20/2020 12:12:19 05/01/2020 text/html PT Initial Eval*Reported bypatient.History: Chief complaint: (R knee pain (under the knee cap laterally as well as posterior knee into calf), known bilateral OA); Mechanism of injury: (Twisting moment due to tripping while hiking); Duration: (Acute (Fall) on chronic); History of L knee pain: more mild, has had PT for this in the past R handed Cortisone shot (12/12) Symptom duration:frequentl y Symptom change:symptoms are not changing Symptom quality:sharp; Achy Aggravating Factors:lying down (On sides); sitting (Prolonged with knee at right angle ); standing ( all day --at the end of the work day); walking; upstairs; downstairs Alleviating Factors:medication s (Ibuprofen); ice; position change; Cortisone injection Prior Treatments:injecti on Work:part-time; [employer] Activities/Hobbies /Exercise:Walking, yoga/stretching Pt continues to note steady, albeit slow progress. Carson De, PT, DPT, [address], [phone], [facility] 05/01/2020 11:09:41 OBGyn Episode No OBEpisode recorded.
== END 2024-02-24 11:19 | disposition home or self-care (01) ==
PROVIDERS: PCP Internal Medicine; Visit Provider Internal Medicine
DX: I48.92 Unspecified atrial flutter (principal); D86.85 Sarcoid myocarditis; I25.42 Coronary artery dissection; J45.40 Moderate persistent asthma, uncomplicated; G47.33 Obstructive sleep apnea (adult) (pediatric); E03.9 Hypothyroidism, unspecified; R73.01 Impaired fasting glucose; G25.81 Restless legs syndrome; F33.9 Major depressive disorder, recurrent, unspecified; E66.01 Morbid (severe) obesity due to excess calories; Z68.42 Body mass index [BMI] 45.0-49.9, adult; J30.89 Other allergic rhinitis; F41.9 Anxiety disorder, unspecified; E55.9 Vitamin D deficiency, unspecified

== ENCOUNTER → 2024-02-24 10:12 | Outpatient (BNVA) | payer OTHER, SELFPAY | PROVIDERS: PCP Internal Medicine; Visit Provider Internal Medicine | DX: E03.9 Hypothyroidism, unspecified (principal); I48.92 Unspecified atrial flutter; D86.85 Sarcoid myocarditis; I25.42 Coronary artery dissection; J45.40 Moderate persistent asthma, uncomplicated; G47.33 Obstructive sleep apnea (adult) (pediatric); R73.01 Impaired fasting glucose; G25.81 Restless legs syndrome; J30.89 Other allergic rhinitis; E55.9 Vitamin D deficiency, unspecified; F41.9 Anxiety disorder, unspecified; F33.9 Major depressive disorder, recurrent, unspecified; E66.01 Morbid (severe) obesity due to excess calories; Z68.42 Body mass index [BMI] 45.0-49.9, adult | CPT/HCPCS: 96127; 99212 ==